=== PATIENT | female | born 1980 | race Caucasian/White ===

== ENCOUNTER 2022-08-19 16:46 | Emergency (ER) | payer OTHER, SELFPAY ==
[2022-08-19 16:56] VITALS: BP 149/96; PULSE 76; RESP 16; TEMP 36.3; O2SAT 100
== END 2022-08-19 22:54 | disposition left against medical advice (07) ==
PROVIDERS: PCP Internal Medicine
DX: R20.2 Paresthesia of skin (principal)
CPT/HCPCS: 99199

== ENCOUNTER 2024-08-06 00:18 | Emergency (ER) | payer OTHER, SELFPAY ==
--- NOTE | ~2024-08-06 | CT_ITS ---
CT scan of the Neck Technique: 2.5 mm axial scans were obtained through the neck after intravenous administration of 75 c c Omnipaque 350. Coronal and sagittal reconstructions of the neck were obtained. Dose reduction techn ique was used on this scan by utilizing automated exposure control and iterative reconstruction techn ique. The dose-length product (DLP) was 476.84 mGy-cm. Clinical History: Lymphadenopathy Findings: There is no evidence of any significant cervical lymphadenopathy. Several small, nonenlarged jugulo- digastric and posterior cervical lymph nodes are noted bilaterally. Parapharyngeal spaces appear norm al bilaterally. The parotid and submandibular glands appear normal. The pharyngeal mucosal spaces appear normal. No soft tissue masses are seen in the neck. The thyroid gland appears normal. Images of the lung apices reveal no abnormalities. Impression: No significant abnormalities noted. Reviewed, dictated and finalized at [facility]. ATION AND DEVELOPMENT MANAGER Impression: No significant abnormalities noted.
[2024-08-06 00:31] VITALS: BP 147/93; PULSE 99; RESP 15; TEMP 36.4; O2SAT 100
[2024-08-06 04:26] LABS: Basophils Percent Auto 0.2 % (0.2-1.2); Eosinophils Absolute Auto 0.1 K/mm3 (0-0.3); Eosinophils Percent Auto 0.7 % (0-4.4); Hematocrit 44.1 % (37.0-47.0); Hemoglobin 15.5 g/dL (12.0-15.0); Immature Granulocyte Absolute 0.02 K/mm3 (0.00-0.031); Immature Granulocyte Percent A 0.2 % (0-0.5); Lymphocytes Absolute Auto 3.11 K/mm3 (0.9-3.2); Lymphocytes Percent Auto 32.4 % (18.3-44.2); Mean Corpuscular HGB Conc 35.1 g/dl (32-36); Mean Corpuscular Hemoglobin 31.4 pg (26-34); Mean Corpuscular Volume 89.5 fl (80-100); Mean Platelet Volume 9.7 fl (7.4-10.4); Monocytes Absolute Auto 0.5 K/mm3 (0.1-0.6); Monocytes Percent Auto 4.8 % (2.6-8.5); Neutrophils Absolute Auto 5.9 K/mm3 (1.3-6.7); Neutrophils Percent Auto 61.7 % (45.5-73.1); Platelet Count Result 262 k/mm3 (150-375); Red Blood Count 4.93 M/mm3 (4.2-5.4); White Blood Count 9.6 K/mm3 (4.5-10.0)
[2024-08-06 04:31] LABS: Strep Group A RT-PCR NOT DETECTED (Negative)
[2024-08-06 04:42] LABS: Influenza A QL RT-PCR Negative (Negative); Influenza B QL RT-PCR Negative (Negative); RSV RNA, RT-PCR Negative (Negative); SARS-CoV-2 RNA PCR Negative (Negative)
[2024-08-06 04:43] LABS: Alanine Aminotransferase 18 U/L (6-35); Albumin Level 5.6 g/dL (3.5-5.1); Alkaline Phosphatase 64 U/L (38-126); Anion Gap 12 mmol/L (4-12); Aspartate Amino Transferase 26 U/L (14-36); Bilirubin,Total 0.6 mg/dL (0.2-1.3); Blood Urea Nitrogen 30 mg/dL (7-17); Calcium 9.7 mg/dL (8.4-10.2); Carbon Dioxide 24 mmol/L (22-30); Chloride 104 mmol/L (98-107); Estimated CRCL calculation 60 ml/min; Estimated Glomerular Filt Rate > 60; Glucose 108 mg/dL (65-110); Lactic Acid Reflex 0.9 mmol/L (0.7-2.0); Potassium 3.7 mmol/L (3.4-5.0); Sodium 140 mmol/L (137-145)
--- NOTE | 2024-08-06 05:02 | ED.GENADULT ---
HPI - General Adult General Chief complaint: Skin/Abscess/Foreign Body Stated complaint: R lymph node swelling, pain in ear Time Seen by Provider: 08/06/24 03:55 History of Present Illness HPI narrative: Patient for 4-year-old female who presents emergency department with chief complaint of swelling in her right jaw all area patient reports that she has had lumps that have developed minor ear and in her neck and on her right side of her mandible or. The patient reports she has an ulceration on the right side of her tongue Related Data Allergies Allergy/AdvReac Type Severity Reaction Status Date / Time codeine AdvReac Mild NAUSEA/VOMI Unverified 12/04/13 15:56 TING Review of Systems Review of Systems: A 10 system review of systems was completed on the patient and is negative except for what is stated in the HPI. Nursing and ancillary documentation was reviewed. Exam Narrative: GENERAL: Well-appearing, well-nourished, and in no acute distress. HEAD: Normocephalic, atraumatic. EYES: PERRLA and EOMI. ENT: Nares clear, no rhinorrhea or epistaxis. Mucous membranes moist. there is an ulceration present the right side of the time NECK: Supple. lymphadenopathy present on the right side of the neck CHEST: Clear to auscultation. No respiratory distress. HEART: Regular rate and rhythm. No murmur heard. Normal peripheral pulses. ABDOMEN: Soft, nontender, nondistended, normal active bowel sounds. EXTREMITIES: Normal range of motion. No edema. SKIN: Warm, dry, no rash. NEURO: No focal deficits. Alert and oriented x3. PSYCH: Normal mood and affect. Course Vital Signs Vital signs: Vital Signs Temperature 36.4 C 08/06/24 00:31 Pulse Rate 99 08/06/24 00:31 Respiratory Rate 15 08/06/24 00:31 Blood Pressure 147/93 H 08/06/24 00:31 Pulse Oximetry 100 08/06/24 00:31 Oxygen Delivery Room Air 08/06/24 00:31 Temperature 36.4 C 08/06/24 00:31 Pulse Rate 99 08/06/24 00:31 Respiratory Rate 15 08/06/24 00:31 Blood Pressure 147/93 H 08/06/24 00:31 Pulse Oximetry 100 08/06/24 00:31 Oxygen Delivery Room Air 08/06/24 00:31 Medical Decision Making [facility] Narrative Medical decision making narrative: differential diagnosis includes abscess, lymphadenopathy laboratory studies were obtained showed normal CBC CMP was within normal limits mono COVID flu and RSV were negative strep was negative. CT scan of the soft tissue neck showed There is no evidence of any significant cervical lymphadenopathy. Several small, nonenlarged jugulo- digastric and posterior cervical lymph nodes are noted bilaterally. Parapharyngeal spaces appear normal bilaterally. The parotid and submandibular glands appear normal. The pharyngeal mucosal spaces appear normal. No soft tissue masses are seen in the neck. The thyroid gland appears normal. Images of the lung apices reveal no abnormalities. Impression: No significant abnormalities noted patient was started on oral antibiotics will be discharged home to follow-up with primary care Vital Signs Vital Signs: Vital Signs Temperature 36.4 C 08/06/24 00:31 Pulse Rate 99 08/06/24 00:31 Respiratory Rate 15 08/06/24 00:31 Blood Pressure 147/93 H 08/06/24 00:31 Pulse Oximetry 100 08/06/24 00:31 Oxygen Delivery Room Air 08/06/24 00:31 Temperature 36.4 C 08/06/24 00:31 Pulse Rate 99 08/06/24 00:31 Respiratory Rate 15 08/06/24 00:31 Blood Pressure 147/93 H 08/06/24 00:31 Pulse Oximetry 100 08/06/24 00:31 Oxygen Delivery Room Air 08/06/24 00:31 Lab Data 08/06/24 04:17 08/06/24 04:17 Labs: Lab Results 08/06/24 08/06/24 Range/Units 03:37 04:17 WBC 9.6 (4.5-10.0) K/mm3 RBC 4.93 (4.2-5.4) M/mm3 Hgb 15.5 H (12.0-15.0) g/dL Hct 44.1 (37.0-47.0) % MCV 89.5 (80-100) fl MCH 31.4 (26-34) pg MCHC 35.1 (32-36) g/dl RDW 13.0 (11.5-14.5) % Plt Count 262 (150-375) k/mm3 MPV 9.7 (7.4-10.4) fl Immature Gran % (Auto) 0.2 (0-0.5) % Neut % (Auto) 61.7 (45.5-73.1) % Lymph % (Auto) 32.4 (18.3-44.2) % Bullitt % (Auto) 4.8 (2.6-8.5) % Eos % (Auto) 0.7 (0-4.4) % Baso % (Auto) 0.2 (0.2-1.2) % Lymph # (Auto) 3.11 (0.9-3.2) K/mm3 Bullitt # (Auto) 0.5 (0.1-0.6) K/mm3 Eos # (Auto) 0.1 (0-0.3) K/mm3 Baso # (Auto) 0.0 (0.0-0.1) K/mm3 Abs Immat Gran (auto) 0.02 (0.00-0.031) K/mm3 Absolute Neuts (auto) 5.9 (1.3-6.7) K/mm3 Absolute Nucleated RBC 0.000 (0.0-0.012) K/mm3 Nucleated RBC % 0.0 (0.0-0.2) % Sodium 140 (137-145) mmol/L Potassium 3.7 (3.4-5.0) mmol/L Chloride 104 (98-107) mmol/L Carbon Dioxide 24 (22-30) mmol/L Anion Gap 12 (4-12) mmol/L BUN 30 H (7-17) mg/dL Creatinine 1.00 (0.7-1.0) mg/dL Estim Creat Clear Calc 60 ml/min Estimated GFR > 60 (59 - ) Glucose 108 (65-110) mg/dL Lactic Acid 0.9 (0.7-2.0) mmol/L Calcium 9.7 (8.4-10.2) mg/dL Total Bilirubin 0.6 (0.2-1.3) mg/dL AST 26 (14-36) U/L ALT 18 (6-35) U/L Alkaline Phosphatase 64 (38-126) U/L Total Protein 9.0 H (6.3-8.2) g/dL Albumin 5.6 H (3.5-5.1) g/dL Monoscreen Negative (Negative) Influenza A (RT-PCR) Negative (Negative) Influenza B (RT-PCR) Negative (Negative) RSV (RT-PCR) Negative (Negative) SARS-CoV-2 RNA (RT-PCR) Negative (Negative) Group A Strep (PCR) Not detected (Negative) Discharge Plan Discharge Clinical Impression: Adenopathy, cervical Patient Disposition: Home, Self-Care Condition: Stable Instructions: Antibiotic Form, Lymphadenopathy (ED) Prescriptions: New amoxicillin-pot clavulanate 875-125 mg tablet 1 tablet PO Q12H 10 Days Qty: 20 0RF Follow-up/Referrals: Oni,Iraida Larose MD [Primary Care Provider] - Time of Disposition: 06:25
[2024-08-06 05:05] LABS: Monoscreen Negative (Negative); Negative Monotest Control Negative (Negative); Positive Monotest Control Positive (Positive)
[2024-08-06] MEDS: KETOROLAC 15 MG/ML VIAL (*BKC) IV PUSH (05:06)
[2024-08-06 06:33] VITALS: BP 138/72; PULSE 79; RESP 15; O2SAT 100
== END 2024-08-06 06:33 | disposition home or self-care (01) ==
PROVIDERS: Emergency Provider Emergency Medicine; PCP Internal Medicine
DX: R59.0 Localized enlarged lymph nodes (principal); Z20.822 Contact with and (suspected) exposure to COVID-19
CPT/HCPCS: 36415; 70491; 80053; 83605; 85025; 86308; 87637; 87651; 96374; 99284; J1885; Q9967

== ENCOUNTER 2025-01-10 21:19 | Emergency (ER) | payer OTHER, SELFPAY ==
--- NOTE | ~2025-01-10 | CT_ITS ---
CT brain wo con Ordering provider: Timothy Monsivais MD History: 44 years Female with . headache, neck pain, rule out meningitis . Comparison: None. Technique: CT of the head without contrast. Radiation reduction technique utilized.The dose-length pr oduct was 605.33 mGy-cm. FINDINGS: BRAIN PARENCHYMA AND CSF SPACES: No midline shift, mass effect or hemorrhage. The brain parenchyma a nd CSF spaces are otherwise normal. VISUALIZED PARANASAL SINUSES: Well aerated. MASTOIDS: Well aerated. BONES: The bones appear intact. SOFT TISSUES: Visualized nasopharynx is normal. Superficial soft tissues are normal. IMPRESSION: No acute intracranial findings. Reviewed, dictated and finalized at location A.
--- NOTE | ~2025-01-10 | CT_ITS ---
CT soft tissue neck wo con Ordering provider: Timothy Monsivais MD History: 44 years Female with . headache, neck pain, R/O meningitis. RIGHT SIDE JAW SWELLING . Comparison: None. Technique: CT soft tissues neck was performed without contrast. . Automated exposure control and ite rative reconstruction technique were employed. The dose-length product was 446.05 mGy-cm. Findings: LOWER HEAD: The visualized brain parenchyma, optic globes/orbits and mastoids are normal. The visua lized paranasal sinuses are well aerated. SALIVARY GLANDS: Normal. THYROID: Normal. There are seen in both lobes of the thyroid. Ultrasound evaluation advised. SUPRAHYOID DEEP SPACES: Lymph nodes seen in the posterior triangles with the largest in the left side measures 8 mm and on the right apex 0.1 mm. CAROTID ARTERIES: Normal. JUGULAR VEINS: Normal. TONSILS: Normal. ORAL CAVITY: normal as visualized. PHARYNX, LARYNX AND TRACHEA: Patent and normal. No prevertebral soft tissue swelling. Artifacts seen in the area of the larynx and hyoid bone. Soft tissue density is seen in the area of the false cord. Further evaluation advised. SUPERFICIAL SOFT TISSUES: Normal. No lymphadenopathy or neck mass. THORACIC INLET/VISUALIZED UPPER CHEST: Normal. SKELETAL: Ascending aorta measures 3.5 cm. IMPRESSION: 1. Possible soft tissue density in the area of the false cord. Further evaluation advised. 2. Multiple nodules in the thyroid. Ultrasound evaluation advised. Reviewed, dictated and finalized at location A. IMPRESSION: 1. Possible soft tissue density in the area of the false cord. Further evaluat ion advised. 2. Multiple nodules in the thyroid. Ultrasound evaluation advised.
--- NOTE | 2025-01-10 21:20 | ED_ITS ---
HPI - Headache General Chief Complaint: Headache Stated Complaint: headache/ neck pain Time Seen by Provider: 01/10/25 21:20 Source: patient and family Mode of arrival: ambulatory Limitations: no limitations History of Present Illness HPI Narrative: patient is a 44-year-old female with neck pain, headache, right cheek pain and concerns of a thyroid nodule. All of these complaints are over a month old and none of them are new. She has had most of them since August. She just found out about the thyroid nodule and has a plan with ENT to do a procedure with ultrasound this upcoming week. Further, the right cheek was evaluated by ENT already and they were going to send her to a specialist and she is waiting for a phone call. She was concerned about all of these things and wanted some advice. Specifically, the patient and her partner present were asking for pain medicine on multiple occasions. They asked if I can give her pain medicine to hold her until the ultrasound this week. They asked for pain medicines even before I was present to see the patient. They said their primary doctor gives him pain medicine all the time. They recently have been to other emergency rooms per history. as an aside, the partner was getting angry and aggressive that pain medicine has not been given to the patient at this point. MD elicited complaint: headache ( With associated neck pain) Pertinent past history: other ( None) Onset (ago): month(s) ( right cheek has been present since August, neck and headache are present over a month and the thyroid nodule was just found on a CT scan and has no pain) Onset description: gradually Location: frontal, facial ( right) and neck Severity: moderate Pain scale (0-10): 6 Quality & Timing: sharp Exacerbating factors: none Relieving factors: nothing Context: other ( patient has been having most of her symptoms for many months and is here for pain control per the patient and her present partner) Associated symptoms: none Treatments prior to arrival: prescription analgesic ( patient has on the chart from 01/09/2025 hydrocodone 10 mg tablets from [facility] which is only 1 day ago) Related Data Home Medications ?Medication ?Instructions ?Recorded ?Confirmed ?Last Taken ?Type hydrocodone 10 mg-acetaminophen tablet PO 01/09/25 01/09/25 Unknown History 325 mg tablet oxcarbazepine 300 mg tablet mg PO 01/09/25 01/09/25 Unknown History Allergies Allergy/AdvReac Type Severity Reaction Status Date / Time codeine AdvReac Mild NAUSEA/VOMI Verified 01/10/25 21:40 TING Review of Systems Review of Systems: All systems reviewed & are unremarkable except as noted in HPI and below Constitutional: Constitutional: Reports no additional constitutional complaints Eyes: Eyes: Reports no additional eye complaints ENT: Reports system reviewed and no additional complaints, except as documented Cardiovascular: Cardiovascular: Reports no additional cardiovascular compl aints Respiratory: Respiratory: Reports no additional respiratory complaints Gastrointestinal: Gastrointestinal: Reports no additional gastrointestinal complaints Genitourinary: Genitourinary: Reports no additional female genitourinary co mplaints Musculoskeletal: Musculoskeletal: Reports no additional musculoskeletal complaints Integumentary/Breasts: Skin/Breast: Reports system reviewed and no additional complaints, except as docu Neurologic: Reports system reviewed and no additional complaints, except as documented Psychiatric: Psychiatric: Reports no additional psychiatric complaints Endocrine: Endocrine: Reports no additional endocrine complaints Hematologic/Lymphatic: Hematologic/Lymphatic: Reports no additional hematologic/lymphatic complaints Allergic/Immunologic: Allergic/Immunologic: Reports no additional allergic/immunologic complaints [facility] Social History Social History Smoking status: Never smoker Exam Const: General: healthy appearing Nutritional Appearance: well nourished Orientation/consciousness: patient oriented x3 HENMT: Head: normal to inspection Ears: external ears normal Face/Nose/Sinus: Normal external nose present Other: patient and family declined to allow me to feel in her mouth with a gloved finger the opening to the parotid gland to feel for stone; on examination the parotid gland was not enlarged or swollen per her history and complaint Eyes: Conjunctivae: conjunctivae normal Pupils: Equal, round and reactive pupils present EOM: EOMs intact bilaterally Neck: Neck: normal visual inspection Chest: Chest palpation & inspection: normal inspection of the chest Resp: Effort & Inspection: normal respiratory effort and not labored Auscultation: clear to auscultation bilaterally and no crackles Cardio: Rate: regular rate Rhythm: regular rhythm Heart sounds: no murmurs GI: Inspection: non-distended GI Palp: Yes Soft to palpation and No Tenderness to palpation present (GI) Auscultation: normal bowel sounds : General: Yes bladder normal to palpation Back/Spine/Pelvis: Back: no CVA tenderness Skin: General skin exam: normal color Rashes: no rashes Wounds: no wounds Neuro: General: patient oriented x3 Cranial nerves: Yes Nystagmus not present Speech: normal speech Gait exam (Neuro): Normal gait present Extrem: General: normal to inspection Psych: Mental Status: mental status grossly normal Affect: normal affect Attitude: cooperative MDM - Headache MDM Narrative Medical decision making narrative: patient is a 44-year-old female with multiple complaints to include her head and neck and right face and thyroid. Patient did not appear to be in significant pain on examination or to palpation of her head and neck or the parotid gland from the outside of her face or the thyroid. Nothing on examination appeared to be overly enlarged. I was asked on multiple occasions by both patient and significant partner present for pain medication. On the chart she was at [facility] as of 01/09/2025 and got [place] 10 mg tablets. There was drug-seeking behaviors on multiple occasions during this encounter by the patient and the significant partner. But I explained that I will not give pain medication until I see about the case and exam and they were very upset and proceeded to leave AMA because pain medication was not given. They would not sign the AMA form. The patient was awake alert oriented x4 and she had the capacity making ability to decide that she did not want medical care at this time. Results of the scans and labs were reviewed and she understands the risks and benefits of leaving AMA. Lab Data Attestation: I reviewed the patient's lab results. Imaging Data Attestation: I personally reviewed and interpreted this imaging study as follows: My impression: patient has a plan to follow up with the [facility] who was following the right cheek and thyroid at this time. Radiologist's impression: CT scan of the head was negative for acute process CT scan of the neck soft tissue shows IMPRESSION: 1. Possible soft tissue density in the area of the false cord. Further evaluat ion advised. 2. Multiple nodules in the thyroid. Ultrasound evaluation advised. Discharge Plan Discharge Clinical Impression: Thyroid nodule, Swelling of right parotid gland, Neck pain, Drug-seeking behavior, Vocal cord anomaly Headache Qualifiers: Headache type: unspecified Headache chronicity pattern: unspecified pattern Intractability: not intractable Qualified Code(s): R51.9 - Headache, unspecified Patient Disposition: Left Against Medical Advice Condition: Stable Patient Language: Ukrainian Prescriptions: No Action hydrocodone-acetaminophen 10-325 mg tablet PO oxcarbazepine 300 mg tablet PO Follow-up/Referrals: UNKNOWN,DOCTOR [Non-Staff] - Time of Disposition: 23:35
--- OUTSIDE RECORDS SUMMARY | 2025-01-10 21:21 | XMS_ITS | Clinical Summary ---
Author Organization [facility] Address [address] [place] [address] Care Team Providers Care Tennis Director Name Role Phone Micah Cao MD Primary Care Provider [phone] Source Comments [facility],non-owned Affiliates and Associated Physician Practices is amultiple site organization consisting of ambulatory clinics and hospital sitesin [place], [place], [place] and [place]. This disclosure is being madepursuant to the Care Everywhere program and may not contain all information available regarding this patient. Last updated 18.[facility] Allergies Active Allergy Reactions Criticality Noted Date Comments Codeine Diarrhea,Nausea and/or Vomiting,GI Discomfort Low 01/28/2015 Takes norco without difficulty Ketorolac Tromethamine Swelling Low 02/16/2015 Swelling of the upper lip Levetiracetam GI Discomfort 03/18/2019 Medications * This document contains information received from the source organization and may not represent a complete record from that organization. * Be aware that medications may not be up to date on this document. Alwaysverify current medications with the patient. omeprazole (PRILOSEC) 20 MG capsule Take 20 mg by mouth 02/08/2016 Active ibuprofen (MOTRIN) 600 MG tablet Take 1 Tab by mouth every 6 hours as needed for Pain 90 Tab 1 02/27/2016 Active ondansetron, disintegrating, (ZOFRAN ODT) 4 MG tabletIndication s:Tension-type headache, not intractable, unspecified chronicity pattern Take 1 (one) tablet by mouth every 8 hours as needed for Nausea/Vomit ing 60 tablet 03/31/2022 Active OXcarbazepine (Trileptal) 300 MG tablet Take 2 (two) tablets by mouth 2 times daily 360 tablet 1 06/18/2024 Active Active Problems Problem Noted Date Diagnosed Date Seizures 08/17/2020 Generalized anxiety disorder 03/21/2019 Migraine with aura and witho ut status migrainosus, not intractable 03/21/2019 Lumbosacral radiculopathy 03/21/2019 Chronic interstitial cystitis 03/15/2016 Chronic pelvic pain in female 02/11/2016 Dyspareunia, female 02/11/2016 Symptomatic states associated with artificial me nopause 02/11/2016 Peritoneal cyst 02/11/2016 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 Pelvic mass 02/03/2015 Resolved Problems Problem Noted Date Diagnosed Date Resolved Date Partial symptomatic epilepsy with complex partial seizures, not intractable, without status epilepticus 03/21/2019 03/17/2022 Encounters Date Type Department Care Team Description 01/03/2025 Travel 12/10/2024 Refill [facility] - Neurology [facility] [place] [address] Nicole Rebolledo APRN-TECHNOLOGY OFFICER Refill Request from Last 3 Months Family History Medical History Relation Name Comments Breast Cancer after age 50 or unknown Maternal Grandmo ther Cancer - Ovarian Maternal Grandmother Endometriosis Mother Cancer - Ovarian Other aunt Diabetes Other aunt Colon Cancer after age 50 or unknown Paternal Grandfat her Endometriosis Sister Relation Name Status Comments Maternal Grandmother Mother Other aunt Paternal Grandfather Sister Social History Tobacco Use Types Packs/Day Years Used Date Smoking Tobacco: Never Smokeless Tobacco: Never Alcohol Use Standard Drinks/Week Comments No 0 (1 standard drink = 0.6 oz pur e alcohol) PHQ-2 Answer Date Recorded PHQ2 TOTAL SCORE 1 04/07/2022 Comments No Sex and Gender Information Value Date Recorded Sex Assigned at Not on file Legal Sex Female 5:39 AM MANAGER PRODUCT DESIGN Gender Identity Not on file Sexual Orientation Not on file Last Filed Vital Signs Vital Sign Reading Time Taken Comments Blood Pressure 127/78 04/07/2022 1:23 PM CDT Pulse 86 04/07/2022 1:23 PM CDT Temperature 36.4 C (97.6 F) 04/07/2022 1:23 PM CDT Respiratory Rate 20 04/07/2022 1:23 PM CDT Oxygen Saturation 100% 04/07/2022 1:23 PM CDT Inhaled Oxygen Concentration 100% 03/21/2017 1 :08 PM CDT Weight 66.3 kg (146 lb 3.2 oz) 04/07/2022 1:23 P M CDT Height 157.5 cm (5' 2 ) 04/07/2022 1:23 PM CDT Body Mass Index 26.74 04/07/2022 1:23 PM CDT Plan of Treatment Upcoming Encounters Date Type Department Care Team (Late st Contact Info) Description 04/08/2025 3:00 PM CDT Office Visit [facility] - Neurology [address] [facility] [place] [id number] Nicole Rebolledo, TAHIRA-TECHNOLOGY OFFICER [address] [place] [address] Health Maintenance Due Date Last Done Comments LIPID TESTING 1982 MAMMOGRAM 1982 PAP SMEAR 1982 HIV SCREENING 1997 HEPATITIS C SCREENING 06/26/2000 DTAP/TDAP/TD VACCINES (1 - Tdap) 2001 HEPATITIS B VACCINE (1 of 3 - 19+ 3-dose series) 2001 SCREENING FOR DIABETES 07/13/2022 9, 05/08/2019, 03/21/2017, Additional history exists COVID-19 VACCINE ( season) 2024 DEPRESSION SCREENING 09/04/2024 04/07/2022 INFLUENZA VACCINE (Season Ended) 2025 ZOSTER VACCINE (1 of 2) 2032 HIB VACCINE Aged Out No longer eligi ble based on patient's age to complete this topic HPV VACCINE Aged Out No longer eligi ble based on patient's age to complete this topic MENINGOCOCCAL (Group B) VACCINE SHARED DECISION-MAKING Aged Out No longer eligible based on patient's age to complete this topic MENINGOCOCCAL GROUPS A/C/Y/W VACCINE Aged Out No longer eligible based on patient's age to complete this topic PNEUMOCOCCAL VACCINE Aged Out No long er eligible based on patient's age to complete this topic Medical Devices Implanted Type Area Quality Assurance Intern Device Identifier Shelf Expiration Date Model / Serial / Lot Floseal Hemostatic Matrix Implanted:Qty: 1 on 02/03/2015 by Ishan Laboy MD at [facility] [place] [facility] [place] [facility] 05/04/2016 [id number] / [id number] / [id number] Explanted Type Area Quality Assurance Intern Device Identifier Shelf Expiration Date Model / Serial / Lot Infravision [place] Ureteral Kit Implanted:Qty: 1 Explanted:Qty: 1 on 02/25/2016 by Ishan Laboy MD at [facility] [place] [facility] [place] Bilateral: Ureter 04/03/2017 [id number] / / [id number] Description:lighted ureteral stents Procedures Procedure Name Priority Date/Time Associated Diagnosis Comments COMPREHENSIVE METABOLIC PANEL STAT 05/08/2019 5:23 PM CDT from Last 3 Months or Most Recently Relevant to Health Maintenance Results * COMPREHENSIVE METABOLIC PANEL (05/08/2019 5:23 PM CDT) BUN 15 7 - 26 mg/dL 05/08/2019 5:42 PM [facility] Creatinine 0.9 0.6 - 1.2 mg/dL 05/08/2019 5:42 PM [facility] Sodium 142 136 - 145 mmol/L 05/08/2019 5:42 PM [facility] Potassium 3.6 3.5 - 4.5 mmol/L 05/08/2019 5:42 PM [facility] Chloride 105 98 - 107 mmol/L 05/08/2019 5:42 PM [facility] CO2 24 22 - 29 mmol/L 05/08/2019 5:42 PM [facility] Glucose 99 70 - 115 mg/dL 05/08/2019 5:42 PM [facility] Calcium 9.9 8.4 - 10.2 mg/dL 05/08/2019 5:42 PM [facility] Protein Total 7.8 6.0 - 8.3 g/dL 05/08/2019 5:42 PM [facility] Albumin 4.7 3.4 - 5.0 g/dL 05/08/2019 5:42 PM [facility] Bilirubin Total 0.4 0.2 - 1.2 mg/dL 05/08/2019 5:42 PM [facility] Alkaline Phosphatase 47 40 - 150 Units/L 05/08/2019 5:42 PM [facility] ALT 9 0 - 55 Units/L 05/08/2019 5:42 PM [facility] AST 19 5 - 34 Units/L 05/08/2019 5:42 PM [facility] Anion Gap 17 8 - 18 05/08/2019 5:42 PM [facility] BUN/Creatinine Ratio 17 7 - 23 05/08/2019 5:42 PM [facility] Osmolality Calculated 295 270 - 300 mOsm/kg 05/08/2019 5:42 PM [facility] Albumin/Globulin Ratio 1.5 1.1 - 2.3 05/08/2019 5:42 PM [facility] eGFR >60 >60 mL/min/1.7 3 m2 05/08/2019 5:42 PM [facility] Blood BLOOD SPECIMEN / Unknown Venipuncture / Unknown 05/08/2019 5:23 PM CDT 05/08/2019 5:23 PM T Eb Zuñiga MD LAB - CHEMISTRY ORDERABLES nal Result [facility] [address] [place] [address] from Last 3 Months or Most Recently Relevant to Health Maintenance Insurance [facility] Advance Directives * Full Code (Latest Code Status on File) Date Activated Date Inactivated Comments 02/25/2016 1:00 PM 02/27/2016 7:26 PM * Full Code Date Activated Date Inactivated Comments 02/03/2015 1:07 PM 02/05/2015 7:49 PM Care Teams Tennis Director Relationship Specialty Start Date End Date Micah Cao MD [address] [place] [phone] PCP - General Family Medicine 01/03/25
--- OUTSIDE RECORDS SUMMARY | 2025-01-10 21:21 | XMS_ITS | Encounter Summary ---
Author Organization [facility] Healthcare Address [address] [place] [address] Care Team Providers Care Jewel Waxer Name Role Phone Micah Cao MD Primary Care Provider [phone] Micah Cao MD Unavailable [phone] Encounter Details Date Type Department Care Team (Late st Contact Info) Description 12/13/2024 Results Follow-Up [facility] Medical Group Convenient Care at [address] [address] Dhruv Elizabeth NP [address] [place] [address] [address] [place] [address] Social History Tobacco Use Types Packs/Day Years Used Date Smoking Tobacco: Never AUDIT-C Answer Date Recorded Q1: How often do you have a drink containing alcohol? Never 08/15/2024 Q2: How many drinks containi ng alcohol do you have on a typical day when you are drinking? Patient does not drink Q3: How often do you have si x or more drinks on one occasion? Never 08/15/2024 PHQ-2 Answer Date Recorded PHQ-2 Total Score (If total score is 3 or more points, staff should administer the PHQ-9) 2 04/05/2024 Comments No Sex and Gender Information Value Date Recorded Sex Assigned at Not on file Legal Sex Female 9:55 PM DIRECTOR NURSES' REGISTRY Gender Identity Female 08/25/2022 9:37 AM DIRECTOR NURSES' REGISTRY Sexual Orientation Choose not to disclose 2021 9:37 AM DIRECTOR NURSES' REGISTRY documented as of this encounter Plan of Treatment Not on file documented as of this encounter Visit Diagnoses Not on filedocumented in this encounter Care Teams Jewel Waxer Relationship Specialty Start Date End Date Micah Cao MD PCP - General Family Medicine 05/16/22 Micah Cao MD Family Medicine 05/13/22 documented as of this encounter
--- OUTSIDE RECORDS SUMMARY | 2025-01-10 21:21 | XMS_ITS | Encounter Summary ---
Author Organization [facility] Address [address] [facility] [place] [address] Care Team Providers Care Technical Stenographer Name Role Phone Micah Cao MD Primary Care Provider [phone] Encounter Details Date Type Department Care Team (Late st Contact Info) Description 06/18/2024 Telephone [facility] - Neurology [address] [place] [phone] Nicole Rebolledo, TAHIRA-HOSPITALITY HOUSE SUPERVISOR [address] [place] [phone] Social History Tobacco Use Types Packs/Day Years Used Date Smoking Tobacco: Never Smokeless Tobacco: Never Alcohol Use Standard Drinks/Week Comments No 0 (1 standard drink = 0.6 oz pur e alcohol) PHQ-2 Answer Date Recorded PHQ2 TOTAL SCORE 1 04/07/2022 Comments No Sex and Gender Information Value Date Recorded Sex Assigned at Not on file Legal Sex Female 5:39 AM BANK MESSENGER Gender Identity Not on file Sexual Orientation Not on file documented as of this encounter Functional Status * Is person deaf or have serious hearing difficulty? Answer Date of Assessment Author No 02/25/2016 1:45 PM MEGANT Daniella Shaver RN * Is person blind or have serious difficulty seeing? Answer Date of Assessment Author No 02/25/2016 1:45 PM MEGANT Daniella Shaver RN * Does person have serious difficulty walking/climbing stairs? Answer Date of Assessment Author No 02/25/2016 1:45 PM CDT Daniella Shaver RN * Does person have difficulty dressing/bathing? Answer Date of Assessment Author No 02/25/2016 1:45 PM CDT Daniella Shaver RN * Does person have difficulty doing errands alone? Answer Date of Assessment Author No 02/25/2016 1:45 PM CDT Daniella Shaver RN documented as of this encounter Mental Status * Does person have difficulty concentrating/remembering/making decisions? Answer Entry Date Author No 02/25/2016 1:45 PM CDT Daniella Shaver RN documented in this encounter Miscellaneous Notes * Telephone Encounter - Yaneli Franco - 06/18/2024 8:09 AM CDT Patient called in requesting a Med refill. Drug type:Trileptal 300 mg and clozapam 0.5 mg twice a day (scared she is going to start having more seizures if she doesn't get this medication) Pharmacy:[facility] in [place] Patient call back number: [phone] . Upcoming appointment scheduled for : 04/02/25 documented in this encounter Plan of Treatment Upcoming Encounters Date Type Department Care Team (Late st Contact Info) Description 04/08/2025 3:00 PM CDT Office Visit [facility] - Neurology [facility] [place] [address] Nicole Rebolledo APRN-HOSPITALITY HOUSE SUPERVISOR [address] [place] [address] documented as of this encounter Visit Diagnoses Not on filedocumented in this encounter Care Teams Technical Stenographer Relationship Specialty Start Date End Date Micah Cao MD [address] [place] [address] [address] [place] [address] PCP - General Family Medicine 01/03/25 documented as of this encounter
--- OUTSIDE RECORDS SUMMARY | 2025-01-10 21:21 | XMS_ITS | Encounter Summary ---
Author Organization [facility] Healthcare Address [address] [place] [address] Care Team Providers Care Burning Machine Operator Name Role Phone Micah Cao MD Primary Care Provider [phone] Micah Cao MD Unavailable [phone] Encounter Details Date Type Department Care Team (Late st Contact Info) Description 04/15/[address] [facility] Medical Group Family Medicine at [address] [address] Micah Cao MD [address] [place] [address] Social History Tobacco Use Types Packs/Day Years Used Date Smoking Tobacco: Never AUDIT-C Answer Date Recorded Q1: How often do you have a drink containing alc ohol? Monthly or less 09/26/2023 Q2: How many drinks containi ng alcohol do you have on a typical day when you are drinking? 1 or 2 09/26/2023 Q3: How often do you have si x or more drinks on one occasion? Never 09/26/2023 PHQ-2 Answer Date Recorded PHQ-2 Total Score (If total score is 3 or more points, staff should administer the PHQ-9) 2 04/05/2024 Comments No Sex and Gender Information Value Date Recorded Sex Assigned at Not on file Legal Sex Female 9:55 PM IMPROVEMENT ENGINEER Gender Identity Female 08/25/2022 9:37 AM IMPROVEMENT ENGINEER Sexual Orientation Choose not to disclose 2021 9:37 AM IMPROVEMENT ENGINEER documented as of this encounter Plan of Treatment Not on file documented as of this encounter Visit Diagnoses Not on filedocumented in this encounter Care Teams Burning Machine Operator Relationship Specialty Start Date End Date Micah Cao MD PCP - General Family Medicine 05/16/22 Micah Cao MD Family Medicine 05/13/22 documented as of this encounter
--- OUTSIDE RECORDS SUMMARY | 2025-01-10 21:21 | XMS_ITS ---
Author Organization [facility] Address [address] [place] [address] Care Team Providers Care Lead Nurse Name Role Phone Angelika Casiano Primary Care Provider Kamaljit Zimmerman [phone] REASON FOR VISIT doc hydrocodone last use 07/10/24 interested in suboxone Encounters Encounter Location Date Provider Diagnosis [facility] [place] [address] 07/12/2024 Kamaljit Zimmerman Plan Of Treatment No Information Progress Notes * Azam LOWEineDOB: [birth year] (44 yo F)Acc No.[id number]:07/12/2024 UNLOCKED PROGRESS NOTE Patient: Mckenna PRECIADO Provider: DOREEN Brower, ACCOUNTING ASSISTANT, DISTILLER-C :1980 A ge:44 Y S ex:Female Date:07/12/2024 Address:[address] [place], [place] [phone] Pcp:Angelika Casiano Subjective: * Chief Complaints: * 1 . Doc hydrocodone last use 07/10/24 interested in suboxone. * Medical History: Objective: * Vitals: Assessment: Plan: * Treatment: * * Electronic signature of Nara Zimmerman APRN, [id number] on 01/10/2025 at 09:21 PM CDT Sign off status: Pending * Provider: Daniella Zimmerman, MSN, ACCOUNTING ASSISTANT, DISTILLER-C Date: 09/11/2023 Generated for Justina beck/Wil/Roosevelt on: 0 01/10/2025 09:21 PM CDT
--- OUTSIDE RECORDS SUMMARY | 2025-01-10 21:21 | XMS_ITS | Clinical Summary ---
Author Organization [facility] Virtual Care Address [address] [place] [address] Phone Care Team Providers Care Specifications Writer Name Role Phone Micah Cao MD Primary Care Provider [phone] Micah Cao MD Unavailable [phone] Allergies Active Allergy Reactions Criticality Noted Date Comments Codeine Diarrhea,Stomach upset,Nausea And Vomiting Low 01/28/2015 Stomach/GI Upset Takes norco without difficulty Ketorolac Tromethamine Swelling Medium 02/16/2015 Swelling of the upper lip Levetiracetam Stomach upset Low 03/18/2019 Morphine Rash Medium 11/11/2018 Rash Medications OXcarbazepine (TRILEPTAL) 150 mg tabletIndicatio ns:Seizure disorder (HCC) Take one tablet po bid for one week, then 2 tablets po bid 120 tablet 3 4 Active HYDROcodone-saida taminophen (NORCO) 10-325 mg per tabletIndicatio ns:Pain Take 1 tablet by mouth every 12 (twelve) hours as needed for pain 60 tablet 5 Active HYDROcodone-saida taminophen (NORCO) 10-325 mg per tabletIndicatio ns:Pain Take 1 tablet by mouth every 12 (twelve) hours as needed for pain 60 tablet 5 01/01/20 25 Discontinu ed(Reorder ) Active Problems Problem Noted Date Diagnosed Date Left hip pain 09/26/2023 Assessment & Plan (09/26/2023 9:30 AM DOCUMENTATION DESIGNER): RICE, Xray, Referral pain?? Chronic left-sided low back pain with left-sided sciatica 06/13/2022 Assessment & Plan (09/26/2023 9:27 AM DOCUMENTATION DESIGNER): Chronic pain. X-ray lumbar spine. With left hip. Has seen pain management in the past. Has done physical therapy. BMI 29. Chronic hydrocodone use. Reviewed okay. BETO (generalized anxiety disorder) 06/13/2022 Assessment & Plan (09/26/2023 9:28 AM DOCUMENTATION DESIGNER): Counseling recommended. Currently off Celexa. Seizure disorder 11/12/2021 Assessment & Plan (09/26/2023 9:32 AM DOCUMENTATION DESIGNER): Referral to neurology. On Benzo. 2019. For seizures. If miss dose has a seizure. Resolved Problems Problem Noted Date Diagnosed Date Resolved Date Generalized epilepsy 06/13/2022 024 Assessment & Plan (09/26/2023 9:27 AM DOCUMENTATION DESIGNER): Currently stable. Referral to Neurology. Discussed clonazepam and hydrocodone interaction. Encounters Date Type Department Care Team Description 12/13/2024 Results Follow-Up [facility] Medical Group Convenient Care at [address] [address] Dhruv Elizabeth NP 12/11/2024 7:41 PM CDT - 12/11/2024 11:59 PM CDT Hospital Encounter [address] [address] Nasopharyngitis; Parotid gland enlargement Discharge Disposition: Discharge to home or self care 12/11/2024 4:45 PM CDT Office Visit [facility] Medical Group Convenient Care at [address] [address] Charley Snyder PA Nasopharyngitis (Primary Dx); Parotid gland enlargement 12/04/2024 Telephone [facility] at [address] [place] [address] Micah Cao MD Medication Request 10/15/2024 Telephone [facility] at [address] [place] [address] Micah Cao MD Additional Services Or Orders from Last 3 Months Immunizations Immunization Administration Dates Next Due Influenza, Trivalent, Preser vative Free, Intramuscular 06/22/2016 Influenza, Unspecified 09/26/2023(Deferr ed: Patient Refused),07/03/2022(Deferred: Patient Refused),06/13/2022(Deferred: Patient Refused),06/04/2021(Deferred: Patient Refused) Surgical History Surgery Date Site/Laterality Comments HYSTERECTOMY SECTION LUNG SURGERY Right Medical History Medical History Date Comments Seizures (HCC) Epilepsy (HCC) Family History Medical History Relation Name Comments Colon cancer Maternal Grandfather Lung cancer Maternal Grandmother Hypertension Mother Relation Name Status Comments Father Alive Maternal Grandfather Maternal Grandmother Mother Alive Social History Tobacco Use Types Packs/Day Years Used Date Smoking Tobacco: Never Tobacco Cessation:Counseling Given: Not Answered AUDIT-C Answer Date Recorded Q1: How often [...] on file Legal Sex Female 9:55 PM DOCUMENTATION DESIGNER Gender Identity Female 08/25/2022 9:37 AM DOCUMENTATION DESIGNER Sexual Orientation Choose not to disclose 2021 9:37 AM DOCUMENTATION DESIGNER Obstetrics History Last Filed Vital Signs Vital Sign Reading Time Taken Comments Blood Pressure 136/93 12/11/2024 4:31 PM CDT Pulse 80 12/11/2024 4:31 PM CDT Temperature 36.8 C (98.3 F) 12/11/2024 4:31 PM CDT Respiratory Rate 20 12/11/2024 4:31 PM CDT Oxygen Saturation 99% 12/11/2024 4:31 PM CDT Inhaled Oxygen Concentration - - Weight 71.3 kg (157 lb 1.6 oz) 12/11/2024 4:31 P M CDT Height 157.5 cm (5' 2 ) 12/11/2024 4:31 PM CDT Body Mass Index 28.73 12/11/2024 4:31 PM CDT Plan of Treatment Health Maintenance Due Date Last Done Comments Breast Cancer Screening-Mammogram 1982 Hepatitis C Screening 1982 DTaP/Tdap/Td Vaccine (1 - Tdap) 1993 Varicella Vaccines (1 of 2 - 13+ 2-dose series) 1995 Hepatitis B Screening 2000 Regular Well Visit/Exam 18-64 2000 Depression Screening 04/05/2025 04/05/2024, 04/07/2023, 05/16/2022 Influenza Vaccine (Season Ended) 2025 06/22/2016 HPV Vaccines Aged Out No longer eligi ble based on patient's age to complete this topic Pneumococcal vaccine <65 Aged Out No longer eligible based on patient's age to complete this topic Procedures Procedure Name Priority Date/Time Associated Diagnosis Comments POCT RAPID STREP Routine 12/11/2024 4:55 PM CDT Nasopharyngitis KENDRA (YEAST) CULTURE Routine 12/11/2024 12:00 PM CDT THROAT CULTURE Routine 12/11/2024 12:00 PM CDT Nasopharyngitis Parotid gland enlargement from Last 3 Months Results * POCT rapid strep A (12/11/2024 4:55 PM CDT) Rapid Strep A, POC Negative Negative Swab 12/11/2024 4:55 PM CDT Charley BROWN POINT OF CARE TEST ORDER ABRIL Final Result * Kendra (yeast) culture Scraping Mouth (12/11/2024 12:00 PM CDT) Report Final Report: No growth of Kendra Comment:Testing performed by : [facility], [address] [place]., [address] Scraping (Mouth) 12/11/2024 12:00 PM CDT 12/12/2024 2:20 AM CDT Narrative [facility] - 12/17/2024 8:58 AM CDT Interpretation data: This culture is NOT intended for the detection of filamentous fungi, endemic mycosis, or Cryptococcus. If detected, yeast will be reported and identified. Routine susceptibility is not performed, but if required, please contact the Microbiology Laboratory at . [facility]OWN LAB MICROBIOLOGY - GENER AL ORDERABLES Final Result Performing Organization Address City/[facility]/ZIP Co de Phone Number [place] [address] Nick Department [place] [address] * Throat culture Throat (12/11/2024 12:00 PM CDT) Report Final Report: Negative Comment:Testing performed by : [facility], [address] [place]., [address] Throat 12/11/2024 12:0 0 PM CDT 12/12/2024 2:19 AM CDT Narrative [facility] - 12/13/2024 2:51 PM CDT Testing performed by [facility] Microbiology Laboratory ([phone]). [facility] LAB MICROBIOLOGY - GENER AL ORDERABLES Final Result Performing Organization Address City/[facility]/ZIP Co de Phone [place] [address] Nick [place] [address] from Last 3 Months Insurance Advance Directives For more information, please contact: [phone] Documents on File Type Date Recorded Patient Development Intern Expl anation ADVANCE DIRECTIVE 12/23/2013 12:00 AM LILIBETH Daniel OF MGMT CONSULTANT FINANCIAL/MEDICAL Care Teams Specifications Writer Relationship Specialty Start Date End Date Micah Cao MD PCP - General Family Medicine 05/16/22 Micah Cao MD Family Medicine 05/13/22
--- OUTSIDE RECORDS SUMMARY | 2025-01-10 21:21 | XMS_ITS | Referral Summary ---
Author Organization [facility] Virtual Care Address [facility] [place] [address] Phone Care Team Providers Care Internet Site Designer Name Role Phone Micah Cao MD Primary Care Provider [phone] Micah Cao MD Unavailable [phone] Encounters Date Type Department Care Team Description 12/13/2024 Results Follow-Up [facility] Care at [address] [address] Dhruv Elizabeth NP 12/11/2024 7:41 PM CDT - 12/11/2024 11:59 PM CDT Hospital Encounter [facility] [address] [place] [address] Nasopharyngitis; Parotid gland enlargement Discharge Disposition: Discharge to home or self care 12/11/2024 4:45 PM CDT Office Visit [facility] Care at [address] [address] Charley Snyder PA Nasopharyngitis (Primary Dx); Parotid gland enlargement 12/04/2024 Telephone [facility] Family Medicine at [address] [place] [address] Micah Cao MD Medication Request 10/15/2024 Telephone [facility] Medical Group Family Medicine at [address] [place] [address] Micah Cao MD Additional Services Or Orders from Last 3 Months Allergies Active Allergy Reactions Criticality Noted Date [...] 09/26/2023 Assessment & Plan (09/26/2023 9:30 AM NETBACKUP ADMINISTRATOR): Jose Armando CLINE, Referral pain?? Chronic left-sided low back pain with left-sided sciatica 06/13/2022 Assessment & Plan (09/26/2023 9:27 AM NETBACKUP ADMINISTRATOR): Chronic pain. X-ray lumbar spine. With left hip. Has seen pain management in the past. Has done physical therapy. BMI 29. Chronic hydrocodone use. Reviewed okay. BETO (generalized anxiety disorder) 06/13/2022 Assessment & Plan (09/26/2023 9:28 AM NETBACKUP ADMINISTRATOR): Counseling recommended. Currently off Celexa. Seizure disorder 11/12/2021 Assessment & Plan (09/26/2023 9:32 AM NETBACKUP ADMINISTRATOR): Referral to neurology. On 2018. For seizures. If miss dose has a seizure. Resolved Problems Problem Noted Date Diagnosed Date Resolved Date Generalized epilepsy 06/13/2022 024 Assessment & Plan (09/26/2023 9:27 AM NETBACKUP ADMINISTRATOR): Currently stable. Referral to Neurology. Discussed clonazepam and hydrocodone interaction. Immunizations Immunization Administration Dates Next Due Influenza, Trivalent, Preser vative Free, Intramuscular 06/22/2016 Influenza, Unspecified 09/26/2023(Deferr ed: Patient Refused),07/03/2022(Deferred: Patient Refused),06/13/2022(Deferred: Patient Refused),06/04/2021(Deferred: Patient Refused) Social History Tobacco Use Types Packs/Day Years [...] on file Legal Sex Female 9:55 PM NETBACKUP ADMINISTRATOR Gender Identity Female 08/25/2022 9:37 AM NETBACKUP ADMINISTRATOR Sexual Orientation Choose not to disclose 2021 9:37 AM NETBACKUP ADMINISTRATOR Last Filed Vital Signs Vital Sign Reading [...] 12/11/2024 4:31 PM CDT Plan of Treatment Not on file Procedures Procedure Name Priority Date/Time Associated Diagnosis Comments POCT RAPID STREP Routine 12/11/2024 4:5 5 PM CDT Nasopharyngitis KENRDA (YEAST) CULTURE Routine 12/11/2024 12:00 PM CDT THROAT CULTURE Routine 12/11/2024 12:00 PM CDT Nasopharyngitis Parotid gland enlargement from Last 3 Months Results * POCT rapid strep A (12/11/2024 4:55 PM CDT) Pathologist [facility] Rapid Strep A, POC Negative Negative Swab 12/11/2024 4:55 PM CDT us Charley BROWN POINT OF CARE TEST ORDER ABRIL Final Result * Kendra (yeast) culture Scraping Mouth (12/11/2024 12:00 PM CDT) Pathologist [facility] Report Final Report: No growth of Kendra Comment:Testing performed by : [facility], [address] [facility]., [address] Scraping (Mouth) 12/11/2024 12:00 PM CDT 12/12/2024 2:20 AM CDT Narrative [facility] - 12/17/2024 8:58 AM CDT Interpretation data: This culture is NOT intended for the detection of filamentous fungi, endemic mycosis, or Cryptococcus. If detected, yeast will be reported and identified. Routine susceptibility is not performed, but if required, please contact the Microbiology Laboratory at . us Charley [facility]OWN LAB MICROBIOLOGY - GENER AL ORDERABLES Final Result [facility]IER [id number] [address] Department [place] [address] * Throat culture Throat (12/11/2024 12:00 PM CDT) Report Final Report: Negative Comment:Testing performed by : [facility], [address] [place]., [address] Throat 12/11/2024 12:0 0 PM CDT 12/12/2024 2:19 AM CDT Narrative [facility] - 12/13/2024 2:51 PM CDT Testing performed by [facility] Microbiology Laboratory ([phone]). Charley BROWN LAB MICROBIOLOGY - GENER AL ORDERABLES Final Result Performing Organization Address City/[facility]/ZIP Co de Phone Number [facility]IER [id number] [address] Department [place] [address] from Last 3 Months Insurance Advance Directives For more information, please contact: [phone] Documents on File Type Date Recorded Patient Fisher Weir Expl anation ADVANCE DIRECTIVE 12/23/2013 12:00 AM LILIBETH R OF YOKE SETTER FINANCIAL/MEDICAL Care Teams Internet Site Designer Relationship Specialty Start Date End Date Micah Cao MD PCP - General Family Medicine 05/16/22 Micah Cao MD Family Medicine 05/13/22
--- OUTSIDE RECORDS SUMMARY | 2025-01-10 21:21 | XMS_ITS | Encounter Summary ---
Author Organization [facility] Facility Care Team Providers Care Brand Activation Manager Name Role Phone Unknown, Notinfile Primary Care Provider Unavail able Micah Cao MD Primary Care Provider [phone] Anais Walker Primary Care Provider + Micah Cao MD Primary Care Provider Micah Cao MD Unavailable [phone] Encounter Details Date Type Department Care Team (Latest Contact Info) Description 02/06/2018 Orders Only [facility] ProviderDhaval MD [address] [place] [address] Social History Tobacco Use Types Packs/Day Years Used Date Smoking Tobacco: Never Assessed Comments Unknown Sex and Gender Information Value Date Recorded Sex Assigned at Not on file Legal Sex Female 9:55 PM POSTULANT Gender Identity Female 08/25/2022 9:37 AM POSTULANT Sexual Orientation Choose not to disclose 2021 9:37 AM POSTULANT documented as of this encounter Plan of Treatment Not on file documented as of this encounter Procedures Procedure Name Priority Date/Time Associated Diagnosis Comments PROCEDURE - RESULT 02/06/2018 12 :00 AM CDT PROCEDURE - RESULT 02/06/2018 12 :00 AM CDT PROCEDURE - RESULT 02/06/2018 12 :00 AM CDT documented in this encounter Results * PROCEDURE - RESULT (02/06/2018 12:00 AM CDT) Narrative 02/06/2018 12:00 AM CDT Ordered by an unspecified provider. Historical Provider Final Res ult * PROCEDURE - RESULT (02/06/2018 12:00 AM CDT) Narrative 02/06/2018 12:00 AM CDT Ordered by an unspecified provider. Historical Provider Final Res ult * PROCEDURE - RESULT (02/06/2018 12:00 AM CDT) Narrative 02/06/2018 12:00 AM CDT Ordered by an unspecified provider. 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
--- OUTSIDE RECORDS SUMMARY | 2025-01-10 21:21 | XMS_ITS | Patient Health Record ---
Author Organization [facility] Address [address] [place] [address] Care Team Providers Care Slate Roofer Name Role Phone OhAngelika Primary Care Provider Kamaljit Zimmerman Unavailable [phone] Allergies No Known Allergies Reason For Referral No Information Medications Medication SIG (Take, Route, Frequency, Duration) Notes Start Date End Date Status hydrOXYzine HCl 25 MG 1 tablet Orally every 6 hrs as needed for 30 days As needed Active clonazePAM 0.5 MG 1 tablet three times daily as needed Orally three times daily prescribed by PCP Active CeleXA 20 MG 1.5 tablets Orally Once a day for 30 days Active HYDROcodone-Acetamino phen 10-325 MG 1 tablet as needed Orally every 6 hrs prescribed by PCP Active SEROquel 25 MG 0.5 tablet Orally two times daily as needed for 30 days As needed 09/20/2023 Active Social History Tobacco Use: Social History Observation Description Date Details (start date - stop date) Never Smoker NA - NA Dont use, Tobacco Use/Smoking Question Answer Notes Are you a nonsmoker Problems Problem Type SNOMED Code ICD Code Onset Dates Problem Status W/U Status Risk Notes Problem Insomnia (201779401) Insomnia (G47.00) Active confirmed Problem Attention deficit hyperactivity disorder, 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), inattentive type (F90.0) Active confirmed Problem Moderate recurrent major depression (89269346) MDD (major depressive disorder), recurrent episode, moderate (F33.1) Active confirmed Problem Generalized anxiety disorder (51150809) Anxiety, generalized (F41.1) Active confirmed Problem Obesity (481690225) Obesity, unspecified classification, unspecified obesity type, unspecified whether serious comorbidity present (E66.9) Active confirmed Encounters Encounter Location Date Provider Diagnosis [address] [place] [address] 03/25/2024 Angelika Casiano [facility] [address] [place] [address] 07/11/2024 Kamaljit Zimmerman Plan Of Treatment No Information Insurance Providers Payer Name Payer Address Payer Phone Subscriber Number Group Number Insured Name Patient Relationship to Insured Coverage Start Date Coverage End Date [employer] Attn Claims Department [address] [place] [address] [phone] [id number] Mckenna Newman Self - patient is the insured [facility] Claims Department [address] [place] [address] [id number] Mckenna Newman Self - patient is the insured 3 Medical (General) History Medical History History ICD Code back pain Surgical History Surgery Date(Month/Year) HYSTERECTOMY 2007 section 2001, 2002, 2005
[2025-01-10 21:22] VITALS: BP 177/119; PULSE 86; RESP 18; TEMP 36.2; O2SAT 100
--- OUTSIDE RECORDS SUMMARY | 2025-01-10 22:02 | XMS_ITS | Encounter Summary ---
Author Organization [facility] Care Team Providers Care Medical Consultant Name Role Phone Unknown, Notinfile Primary Care Provider Unavail able Micah Cao MD Primary Care Provider [phone] Anais Walker Primary Care Provider + Micah Cao MD Primary Care Provider [phone] Micah Cao MD Unavailable [phone] Encounter Details Date Type Department Care Team (Latest Contact Info) Description 02/06/2018 Orders Only [facility] ProviderDhaval MD [address] [place] [address] Social History Tobacco Use Types Packs/Day Years Used Date Smoking Tobacco: Never Assessed Comments Unknown Sex and Gender Information Value Date Recorded Sex Assigned at Not on file Legal Sex Female 9:55 PM WINDOWS SYSTEMS ENGINEER Gender Identity Female 08/25/2022 9:37 AM WINDOWS SYSTEMS ENGINEER Sexual Orientation Choose not to disclose 2021 9:37 AM WINDOWS SYSTEMS ENGINEER documented as of this encounter Plan [...] documented as of this encounter Care Teams Medical Consultant Relationship Specialty Start Date End Date Unknown, Notinfile PCP - General 08/15/18 10/05/20 Micah Cao MD PCP - General Family Medicine 03/18/22 05/12/22 Anais Walker PA PCP - General Family Medicine 05/13/22 05/15/22 Micah Cao MD PCP - General Family Medicine 05/16/22 Micah Cao MD Family Medicine 05/13/22 documented as of this encounter
--- OUTSIDE RECORDS SUMMARY | 2025-01-10 22:02 | XMS_ITS | Clinical Summary ---
Author Organization [facility] Virtual Care Address [address] [place] [address] Phone Care Team Providers Care Radial Drill Press Operator For Plastic Name Role Phone Micah Cao MD Primary Care Provider [phone] Micah Cao MD Unavailable [phone] Allergies Active Allergy Reactions Criticality Noted Date [...] 09/26/2023 Assessment & Plan (09/26/2023 9:30 AM SLOT MACHINE DEPARTMENT FLOORPERSON): RICE, Xray, Referral pain?? Chronic left-sided low back pain with left-sided sciatica 06/13/2022 Assessment & Plan (09/26/2023 9:27 AM SLOT MACHINE DEPARTMENT FLOORPERSON): Chronic pain. X-ray lumbar spine. With left hip. Has seen pain management in the past. Has done physical therapy. BMI 29. Chronic hydrocodone use. Reviewed okay. BETO (generalized anxiety disorder) 06/13/2022 Assessment & Plan (09/26/2023 9:28 AM SLOT MACHINE DEPARTMENT FLOORPERSON): Counseling recommended. Currently off Celexa. Seizure disorder 11/12/2021 Assessment & Plan (09/26/2023 9:32 AM SLOT MACHINE DEPARTMENT FLOORPERSON): Referral to neurology. On Benzo. 2019. For seizures. If miss dose has a seizure. Resolved Problems Problem Noted Date Diagnosed Date Resolved Date Generalized epilepsy 06/13/2022 024 Assessment & Plan (09/26/2023 9:27 AM SLOT MACHINE DEPARTMENT FLOORPERSON): Currently stable. Referral to Neurology. Discussed clonazepam and hydrocodone interaction. Encounters Date Type Department Care Team Description 12/13/2024 Results Follow-Up [facility] at [address] [address] Dhruv Elizabeth NP 12/11/2024 7:41 PM CDT - 12/11/2024 11:59 PM CDT Hospital Encounter [address] [address] Nasopharyngitis; Parotid gland enlargement Discharge Disposition: Discharge to home or self care 12/11/2024 4:45 PM CDT Office Visit [facility] at [address] [address] Charley Snyder PA Nasopharyngitis (Primary Dx); Parotid gland enlargement 12/04/2024 Telephone [facility] at [address] [place] [address] Micah Cao MD Medication Request 10/15/2024 Telephone [facility] at [address] [place] [address] Micah Cao MD Additional Services [...] on file Legal Sex Female 9:55 PM SLOT MACHINE DEPARTMENT FLOORPERSON Gender Identity Female 08/25/2022 9:37 AM SLOT MACHINE DEPARTMENT FLOORPERSON Sexual Orientation Choose not to disclose 2021 9:37 AM SLOT MACHINE DEPARTMENT FLOORPERSON Obstetrics History Last Filed Vital Signs Vital [...] growth of Kendra Comment:Testing performed by : [facility], [address] [place]., [address] Scraping (Mouth) 12/11/2024 12:00 PM CDT 12/12/2024 2:20 AM CDT Narrative [facility] - 12/17/2024 8:58 AM CDT Interpretation data: This culture is NOT intended for the detection of filamentous fungi, endemic mycosis, or Cryptococcus. If detected, yeast will be reported and identified. Routine susceptibility is not performed, but if required, please contact the Microbiology Laboratory at . [facility] MICROBIOLOGY - GENER AL ORDERABLES Final Result Performing Organization Address City/[facility]/ZIP Co de Phone [place] [address] [address] [place] [address] * Throat culture Throat (12/11/2024 12:00 PM CDT) Report Final Report: Negative Comment:Testing performed by : [facility], [address] [place]., [address] Throat 12/11/2024 12:0 0 PM CDT 12/12/2024 2:19 AM CDT Narrative [facility] - 12/13/2024 2:51 PM CDT Testing performed by [facility] Microbiology Laboratory ([phone]). [facility] MICROBIOLOGY - GENER AL ORDERABLES Final Result Performing Organization Address City/[facility]/ZIP Co de Phone Number [place] [address] Nick Department [address] [place] [address] from Last 3 Months Insurance Advance Directives For more information, please contact: [phone] Documents on File Type Date Recorded Patient Back Shoe Cutter Expl anation ADVANCE DIRECTIVE 12/23/2013 12:00 AM LILIBETH Daniel OF [employer]SE [employer]/MEDICAL Care Teams Radial Drill Press Operator For Plastic Relationship Specialty Start Date End Date Miach Cao MD PCP - General Family Medicine 05/16/22 Micah Cao MD Family Medicine 05/13/22
--- OUTSIDE RECORDS SUMMARY | 2025-01-10 22:02 | XMS_ITS | Clinical Summary ---
Author Organization [facility] Address [address] [facility] [place] [address] Care Team Providers Care Power Transformer Repair Supervisor Name Role Phone Micah Cao MD Primary Care Provider [phone] Source Comments [facility],non-owned Affiliates and Associated Physician Practices is amultiple site organization consisting of ambulatory clinics and hospital sitesin [place], [place], [place] and [place]. This disclosure is being madepursuant to the Care Everywhere program and may not contain all information available regarding this patient. Last updated 18.[facility] Allergies Active Allergy Reactions Criticality Noted Date [...] 12/10/2024 Refill [facility] [place] [address] Nicole Rebolledo APRN-BOOK COVERER Refill Request from Last 3 Months Family [...] on file Legal Sex Female 5:39 AM INVENTORY CONTROL PLANNER Gender Identity Not on file Sexual Orientation [...] [facility] [address] [facility], [place] [id number] Nicole Rebolledo, TAHIRA-BOOK COVERER [address] [place] [address] Health Maintenance Due Date Last Done Comments [...] this topic Medical Devices Implanted Type Area Jira Administrator Device Identifier Shelf Expiration Date Model / Serial / Lot Floseal Hemostatic Matrix Implanted:Qty: 1 on 02/03/2015 by Ishan Laboy MD at [facility] 05/04/2016 [id number] / [id number] / [id number] Explanted Type Area Jira Administrator Device Identifier Shelf Expiration Date Model / Serial / Lot Inf[employer]ision Cuttyhunk Ureteral Kit Implanted:Qty: 1 Explanted:Qty: 1 on 02/25/2016 by Ishan Laboy MD at [facility] Bilateral: Ureter 04/03/2017 [id number] / / [id number] Description:lighted ureteral stents Procedures Procedure Name Priority Date/Time Associated Diagnosis Comments COMPREHENSIVE METABOLIC PANEL STAT 05/08/2019 5:23 PM CDT from Last 3 Months or Most Recently Relevant to Health Maintenance Results * COMPREHENSIVE METABOLIC PANEL (05/08/2019 5:23 PM CDT) BUN 15 7 - 26 mg/dL 05/08/2019 5:42 PM [facility] Creatinine 0.9 0.6 - 1.2 mg/dL 05/08/2019 5:42 PM [facility] Sodium 142 136 - 145 mmol/L 05/08/2019 5:42 PM [facility] Potassium 3.6 3.5 - 4.5 mmol/L 05/08/2019 5:42 PM [facility] Chloride 105 98 - 107 mmol/L 05/08/2019 5:42 PM [facility] CO2 24 22 - 29 mmol/L 05/08/2019 5:42 PM [facility] Glucose 99 70 - 115 mg/dL 05/08/2019 5:42 PM [facility] Calcium 9.9 8.4 - 10.2 mg/dL 05/08/2019 5:42 PM [facility] Protein Total 7.8 6.0 - 8.3 g/dL 05/08/2019 5:42 PM [facility] Albumin 4.7 3.4 - 5.0 [...] MD LAB - CHEMISTRY ORDERABLES nal Result [facility] [address] [place] [address] from Last 3 Months or Most Recently Relevant to Health Maintenance Insurance [facility] Advance Directives * Full Code (Latest Code Status on File) Date Activated Date Inactivated Comments 02/25/2016 1:00 PM 02/27/2016 7:26 PM * Full Code Date Activated Date Inactivated Comments 02/03/2015 1:07 PM 02/05/2015 7:49 PM Care Teams Power Transformer Repair Supervisor Relationship Specialty Start Date End Date Micah Cao MD [address] [place] [phone] PCP - General Family Medicine 01/03/25
--- OUTSIDE RECORDS SUMMARY | 2025-01-10 22:02 | XMS_ITS | Encounter Summary ---
Author Organization [facility] Address [address] [facility] [place] [address] Care Team Providers Care Senior Electronics Technician Name Role Phone Micah Cao MD Primary Care Provider [phone] Encounter Details Date Type Department Care Team (Late st Contact Info) Description 06/18/2024 Telephone [facility] [address] [place] [address] Nicole Rebolledo, TAHIRA-DRYWALL HANGER FRAMER [address] [place] [phone] Social History Tobacco Use Types Packs/Day Years Used Date Smoking Tobacco: Never Smokeless Tobacco: Never Alcohol Use Standard Drinks/Week Comments No 0 (1 standard drink = 0.6 oz pur e alcohol) PHQ-2 Answer Date Recorded PHQ2 TOTAL SCORE 1 04/07/2022 Comments No Sex and Gender Information Value Date Recorded Sex Assigned at Not on file Legal Sex Female 5:39 AM SUPERINTENDENT BUILDING Gender Identity Not on file Sexual Orientation [...] seizures if she doesn't get this medication) Pharmacy:[facility] [place] Patient call back number: [phone] . Upcoming appointment scheduled for : 04/02/25 documented in this encounter Plan of Treatment Upcoming Encounters Date Type Department Care Team (Late st Contact Info) Description 04/08/2025 3:00 PM CDT Office Visit [facility] [place] [address] Nicole Rebolledo APRN-DRYWALL HANGER FRAMER [address] [place] [address] documented as of this encounter Visit Diagnoses Not on filedocumented in this encounter Care Teams Senior Electronics Technician Relationship Specialty Start Date End Date Micah Cao MD [address] [place] [address] [address] [place] [address] PCP - General Family Medicine 01/03/25 documented as of this encounter
--- OUTSIDE RECORDS SUMMARY | 2025-01-10 22:02 | XMS_ITS | Encounter Summary ---
Author Organization [facility] Healthcare Address [address] [place] [address] Care Team Providers Care Decorating Equipment Setter Name Role Phone Micah Cao MD Primary Care Provider [phone] Micah Cao MD Unavailable [phone] Encounter Details Date Type Department Care Team (Late st Contact Info) Description 12/13/2024 Results Follow-Up [facility] at [address] [address] Dhruv Elizabeth NP [address] [place] [address] [address] [place] [address] Social History Tobacco Use Types [...] on file Legal Sex Female 9:55 PM FOREIGN CLERK Gender Identity Female 08/25/2022 9:37 AM FOREIGN CLERK Sexual Orientation Choose not to disclose 2021 9:37 AM FOREIGN CLERK documented as of this encounter Plan of Treatment Not on file documented as of this encounter Visit Diagnoses Not on filedocumented in this encounter Care Teams Decorating Equipment Setter Relationship Specialty Start Date End Date Micah Cao MD PCP - General Family Medicine 05/16/22 Micah Cao MD Family Medicine 05/13/22 documented as of this encounter
--- OUTSIDE RECORDS SUMMARY | 2025-01-10 22:02 | XMS_ITS | Referral Summary ---
Author Organization [facility] Virtual Care Address [facility] [place] [address] Phone Care Team Providers Care Front Man Name Role Phone Micah Cao MD Primary Care Provider [phone] Micah Cao MD Unavailable Encounters Date Type Department Care Team Description 12/13/2024 Results Follow-Up [facility] Care at [address] [address] Dhruv Elizabeth NP 12/11/2024 7:41 PM CDT - 12/11/2024 11:59 PM CDT Hospital Encounter [facility] [address] [place] [address] Nasopharyngitis; Parotid gland enlargement Discharge Disposition: Discharge to home or self care 12/11/2024 4:45 PM CDT Office Visit [facility] Care at [address] [address] Charley Snyder PA Nasopharyngitis (Primary Dx); Parotid gland enlargement 12/04/2024 Telephone [facility] Family Medicine at [address] [place] [address] Micah Cao MD Medication Request 10/15/2024 Telephone [facility] Family Medicine at [address] [place] [address] Micah Cao MD Additional Services [...] 09/26/2023 Assessment & Plan (09/26/2023 9:30 AM TRAVEL TRAILER COMPONENTS ASSEMBLER): Jose Armando CLINE, Referral pain?? Chronic left-sided low back pain with left-sided sciatica 06/13/2022 Assessment & Plan (09/26/2023 9:27 AM TRAVEL TRAILER COMPONENTS ASSEMBLER): Chronic pain. X-ray lumbar spine. With left hip. Has seen pain management in the past. Has done physical therapy. BMI 29. Chronic hydrocodone use. Reviewed okay. BETO (generalized anxiety disorder) 06/13/2022 Assessment & Plan (09/26/2023 9:28 AM TRAVEL TRAILER COMPONENTS ASSEMBLER): Counseling recommended. Currently off Celexa. Seizure disorder 11/12/2021 Assessment & Plan (09/26/2023 9:32 AM TRAVEL TRAILER COMPONENTS ASSEMBLER): Referral to neurology. On 2018. For seizures. If miss dose has a seizure. Resolved Problems Problem Noted Date Diagnosed Date Resolved Date Generalized epilepsy 06/13/2022 024 Assessment & Plan (09/26/2023 9:27 AM TRAVEL TRAILER COMPONENTS ASSEMBLER): Currently stable. Referral to Neurology. Discussed clonazepam [...] on file Legal Sex Female 9:55 PM TRAVEL TRAILER COMPONENTS ASSEMBLER Gender Identity Female 08/25/2022 9:37 AM TRAVEL TRAILER COMPONENTS ASSEMBLER Sexual Orientation Choose not to disclose 2021 9:37 AM TRAVEL TRAILER COMPONENTS ASSEMBLER Last Filed Vital Signs Vital Sign Reading [...] strep A (12/11/2024 4:55 PM CDT) Pathologist [facility] Rapid Strep A, POC Negative Negative Swab 12/11/2024 4:55 PM CDT us [facility] POINT OF CARE TEST ORDER ABRIL Final Result * Kendra (yeast) culture Scraping Mouth (12/11/2024 12:00 PM CDT) Pathologist [facility] Report Final Report: No growth of Kendra Comment:Testing performed by : [facility], [address] [place]., [address] Scraping (Mouth) 12/11/2024 12:00 PM CDT 12/12/2024 [...] GENER AL ORDERABLES Final Result [facility] [id number] [place] [address] * Throat culture Throat (12/11/2024 12:00 PM CDT) Report Final Report: Negative Comment:Testing performed by : [facility], [address] [place]., [address] Throat 12/11/2024 12:0 0 PM CDT 12/12/2024 2:19 AM CDT Narrative [facility] - 12/13/2024 2:51 PM CDT Testing performed by [facility] Microbiology Laboratory ([phone]). [facility] MICROBIOLOGY - GENER AL ORDERABLES Final Result [facility] [id number] [place] [address] from Last 3 Months Insurance Advance Directives For more information, please contact: [phone] Documents on File Type Date Recorded Patient Gambling Broker Expl anation ADVANCE DIRECTIVE 12/23/2013 12:00 AM LILIBETH R OF SOFT SUGAR CUTTER FINANCIAL/MEDICAL Care Teams Front Man Relationship Specialty Start Date End Date Micah Cao MD PCP - General Family Medicine 05/16/22 Micah Cao MD Family Medicine 05/13/22
--- OUTSIDE RECORDS SUMMARY | 2025-01-10 22:02 | XMS_ITS | Encounter Summary ---
Author Organization [facility] Healthcare Address [address] [place] [address] Care Team Providers Care Head Bucker Name Role Phone Micah Cao MD Primary Care Provider [phone] Micah Cao MD Unavailable Encounter Details Date Type Department Care Team (Late st Contact Info) Description 04/15/[address] [facility] Family Medicine at [address] [address] Micah Cao MD [address] [place] [address] Social History Tobacco Use Types Packs/Day [...] on file Legal Sex Female 9:55 PM LINTER OPERATOR Gender Identity Female 08/25/2022 9:37 AM LINTER OPERATOR Sexual Orientation Choose not to disclose 2021 9:37 AM LINTER OPERATOR documented as of this encounter Plan of Treatment Not on file documented as of this encounter Visit Diagnoses Not on filedocumented in this encounter Care Teams Head Bucker Relationship Specialty Start Date End Date Micah Cao MD PCP - General Family Medicine 05/16/22 Micah Cao MD Family Medicine 05/13/22 documented as of this encounter
[2025-01-10 23:03] LABS: Basophils Absolute Auto 0.02 K/mm3 (0.00-0.10); Basophils Percent Auto 0.3 % (0.0-1.0); Eosinophils Absolute Auto 0.21 K/mm3 (0.02-0.50); Eosinophils Percent Auto 2.7 % (1.0-6.0); Hematocrit 42.4 % (35.0-49.0); Hemoglobin 14.5 g/dL (12.0-15.0); Immature Granulocyte Absolute 0.01 K/mm3 (0.00-0.00); Immature Granulocyte Percent A 0.1 % (0.0-0.0); Lymphocytes Absolute Auto 2.23 K/mm3 (1.10-4.50); Mean Corpuscular HGB Conc 34.2 g/dL (32-36); Mean Corpuscular Hemoglobin 29.7 pg (27.0-31.0); Mean Corpuscular Volume 86.9 fL (78.0-102.0); Mean Platelet Volume 9.2 fl (9.2-11.8); Monocytes Absolute Auto 0.37 K/mm3 (0.10-0.90); Monocytes Percent Auto 4.8 % (2.0-11.0); Neutrophils Absolute Auto 4.85 K/mm3 (1.70-7.20); Neutrophils Percent Auto 63.1 % (50.0-70.0); Platelet Count Result 271 K/mm3 (150-420); Red Blood Count 4.88 M/mm3 (4.20-5.40); Red Cell Distribution Width 12.9 % (11.6-14.4); White Blood Count 7.7 K/mm3 (4.8-10.8)
[2025-01-10 23:15] LABS: INR 0.9; Prothrombin Time 10.3 Seconds (9.50-12.1)
[2025-01-10 23:17] LABS: Alanine Aminotransferase 15 U/L (6-35); Albumin Level 5.1 g/dL (3.5-5.1); Alkaline Phosphatase 61 U/L (38-126); Anion Gap 6 mmol/L (4-12); Aspartate Amino Transferase 27 U/L (14-36); Bilirubin,Total 0.5 mg/dL (0.2-1.3); Blood Urea Nitrogen 13 mg/dL (7-17); CRP < 0.5 mg/dL (<1.0); Calcium 9.2 mg/dL (8.4-10.2); Carbon Dioxide 30 mmol/L (22-30); Chloride 105 mmol/L (98-107); Estimated CRCL calculation 72 ml/min; Estimated Glomerular Filt Rate > 60; Glucose 102 mg/dL (65-110); Osmolality Calculated 292 mOsm/kg (285-295); Potassium 3.9 mmol/L (3.4-5.0); Sodium 141 mmol/L (137-145); Total Protein 8.1 g/dL (6.3-8.2)
[2025-01-10 23:19] LABS: Partial Thromboplastin Time 30.3 Sec (23.9-30.70)
--- NOTE | 2025-01-12 12:41 | PC.NURSE ---
PRELIMINARY BLOOD CULTURE REPORT; NO GROWTH TO DATE.
== END 2025-01-10 23:35 | disposition left against medical advice (07) ==
PROVIDERS: Emergency Provider Emergency Medicine; PCP Family Medicine
DX: E04.1 Nontoxic single thyroid nodule (principal); R59.0 Localized enlarged lymph nodes; M54.2 Cervicalgia; Z76.5 Malingerer [conscious simulation]; R51.9 Headache, unspecified; Q89.8 Other specified congenital malformations; Z79.891 Long term (current) use of opiate analgesic; Z79.899 Other long term (current) drug therapy
CPT/HCPCS: 36415; 70450; 70490; 80053; 85025; 85610; 85730; 86140; 87040; 99284

== ENCOUNTER 2025-01-13 15:05 | Outpatient (CLI) | payer OTHER, SELFPAY ==
--- NOTE | ~2025-01-13 | US_ITS ---
Thyroid ultrasound. Clinical History: Nontoxic nodule Findings: Real-time sonography of the thyroid gland was performed. The right lobe measures 4.1 x 1.2 x 1.4 cm. The left lobe measures 4.1 x 2.0 x 1.6 cm. The isthmus is 4 mm in AP diameter. There is a 2.4 x 1.9 1.6 cm hyperechoic solid nodule at the left lower thyroid pole. Impression: 2.4 cm TI-RADS 3 nodule at the left lower pole. Annual follow-up exam advised.. Reviewed, dictated and finalized at location . Impression: 2.4 cm TI-RADS 3 nodule at the left lower pole. Annual follow-up exam advised..
--- OUTSIDE RECORDS SUMMARY | 2025-01-13 15:10 | XMS_ITS | Clinical Summary ---
Author Organization [facility] [email or web address] Address [address] [place] [place] [address] Care Team Providers Care Black Leather Buffer Name Role Phone Micah Cao MD Primary Care Provider [phone] Source Comments [facility] [email or web address],non-owned Affiliates and Associated Physician Practices is amultiple site organization consisting of ambulatory clinics and hospital sitesin [place], [place], [place] and [place]. This disclosure is being madepursuant to the Care Everywhere program and may not contain all information available regarding this patient. Last updated 18.[facility] [email or web address] Allergies Active Allergy Reactions Criticality Noted Date [...] [facility] [place] [address] Nicole Rebolledo APRN-DIRECTOR CORPORATE Refill Request from Last 3 Months Family [...] on file Legal Sex Female 5:39 AM SHRUB PLANTER Gender Identity Not on file Sexual Orientation [...] [facility] [address] [facility] [place] [phone] Nicole Rebolledo, TAHIRA-DIRECTOR CORPORATE [address] [place] [address] Health Maintenance Due Date Last Done Comments [...] this topic Medical Devices Implanted Type Area Contact Center Director Device Identifier Shelf Expiration Date Model / Serial / Lot Floseal Hemostatic Matrix Implanted:Qty: 1 on 02/03/2015 by Ishan Laboy MD at [facility] 05/04/2016 [id number] / [id number] / [id number] Explanted Type Area Contact Center Director Device Identifier Shelf Expiration Date Model / Serial / Lot Infravision [place] Ureteral Kit Implanted:Qty: 1 Explanted:Qty: 1 on 02/25/2016 by Ishan Laboy MD at [facility] Bilateral: Ureter 04/03/2017 [id number] / / [id number] Description:lighted ureteral stents Procedures Procedure Name Priority Date/Time Associated Diagnosis Comments COMPREHENSIVE METABOLIC PANEL STAT 05/08/2019 5:23 PM CDT from Last 3 Months or Most Recently Relevant to Health Maintenance Results * COMPREHENSIVE METABOLIC PANEL (05/08/2019 5:23 PM CDT) BUN 15 7 - 26 mg/dL 05/08/2019 5:42 PM [facility] Creatinine 0.9 0.6 - 1.2 mg/dL 05/08/2019 5:42 PM [facility] Sodium 142 136 - 145 mmol/L 05/08/2019 5:42 PM [facility] Potassium 3.6 3.5 - 4.5 mmol/L 05/08/2019 5:42 PM [facility] Chloride 105 98 - 107 mmol/L 05/08/2019 5:42 PM [facility] CO2 24 22 - 29 mmol/L 05/08/2019 5:42 PM [facility] Glucose 99 70 - 115 mg/dL 05/08/2019 5:42 PM [facility] Calcium 9.9 8.4 - 10.2 mg/dL 05/08/2019 5:42 PM [facility] Protein Total 7.8 6.0 - 8.3 g/dL 05/08/2019 5:42 PM [facility] Albumin 4.7 3.4 - 5.0 g/dL 05/08/2019 5:42 PM [facility] Bilirubin Total 0.4 0.2 - 1.2 mg/dL 05/08/2019 5:42 PM [facility] Alkaline Phosphatase 47 40 - 150 Units/L 05/08/2019 5:42 PM [facility] ALT 9 0 - 55 Units/L 05/08/2019 5:42 PM [facility] AST 19 5 - 34 Units/L 05/08/2019 5:42 PM [facility] Anion Gap 17 8 - 18 05/08/2019 5:42 PM [facility] BUN/Creatinine Ratio 17 7 - 23 05/08/2019 5:42 PM [facility] Osmolality Calculated 295 270 - 300 mOsm/kg 05/08/2019 5:42 PM [facility] Albumin/Globulin Ratio 1.5 1.1 - 2.3 05/08/2019 5:42 PM [facility] eGFR >60 >60 mL/min/1.7 3 m2 05/08/2019 5:42 PM [facility] Blood BLOOD SPECIMEN / Unknown Venipuncture / Unknown 05/08/2019 5:23 PM CDT 05/08/2019 5:23 PM T Eb Zuñiga MD LAB - CHEMISTRY ORDERABLES nal Result [facility] [address] [place] [address] from Last 3 Months or Most Recently Relevant to Health Maintenance Insurance [facility] Advance Directives * Full Code (Latest Code Status on File) Date Activated Date Inactivated Comments 02/25/2016 1:00 PM 02/27/2016 7:26 PM * Full Code Date Activated Date Inactivated Comments 02/03/2015 1:07 PM 02/05/2015 7:49 PM Care Teams Black Leather Buffer Relationship Specialty Start Date End Date Micah Cao MD [address] [place] [phone] PCP - General Family Medicine 01/03/25
--- OUTSIDE RECORDS SUMMARY | 2025-01-13 15:10 | XMS_ITS ---
Author Organization [facility] Address [address] [place] [address] Care Team Providers Care Five Piece Expansion Maker Hand Name Role Phone Angelika Casiano Primary Care Provider Kamaljit Zimmerman [phone] REASON FOR VISIT doc hydrocodone last use 07/10/24 interested in suboxone Encounters Encounter Location Date Provider Diagnosis [facility] [place] [address] 07/12/2024 Kamaljit Zimmerman Plan Of Treatment No Information Progress Notes * Azam LOWEineDOB: [birth year] (44 yo F)Acc No.[id number]:07/12/2024 UNLOCKED PROGRESS NOTE Patient: Mckenna PRECIADO Provider: DOREEN Brower, RACETRACK STEWARD, LEAD GENERATOR-C :1980 A ge:44 Y S ex:Female Date:07/12/2024 Address:[address] [place], [place] [id number] Pcp:Angelika Casiano Subjective: * Chief Complaints: * 1 . Doc hydrocodone last use 07/10/24 interested in suboxone. * Medical History: Objective: * Vitals: Assessment: Plan: * Treatment: * * Electronic signature of Nara Zimmerman APRN, [id number] on 01/13/2025 at 03:10 PM CDT Sign off status: Pending * Provider: Daniella Zimmerman, MSN, RACETRACK STEWARD, LEAD GENERATOR-C Date: 09/11/2023 Generated for Justina beck/Wil/[place] on: 0 01/13/2025 03:10 PM CDT
--- OUTSIDE RECORDS SUMMARY | 2025-01-13 15:10 | XMS_ITS | Referral Summary ---
Author Organization [facility] Virtual Care Address [facility] [place] [address] Phone Care Team Providers Care Sharepoint Developer Name Role Phone Micah Cao MD Primary Care Provider [phone] Micah Cao MD Unavailable [phone] Encounters Date Type Department Care Team Description 12/13/2024 Results Follow-Up [facility] Care at [address] [address] Dhruv Elizabeth NP 12/11/2024 7:41 PM CDT - 12/11/2024 11:59 PM CDT Hospital Encounter [facility] [address] [place] [address] Nasopharyngitis; Parotid gland enlargement Discharge Disposition: Discharge to home or self care 12/11/2024 4:45 PM CDT Office Visit [facility] Care at [address] [address] Charley Snyder PA Nasopharyngitis (Primary Dx); Parotid gland enlargement 12/04/2024 Telephone [facility] Family Medicine at [address] [place] [address] Micah Cao MD Medication Request from Last 3 Months Allergies Active Allergy [...] 09/26/2023 Assessment & Plan (09/26/2023 9:30 AM CRIBBER): SON Xray, Referral pain?? Chronic left-sided low back pain with left-sided sciatica 06/13/2022 Assessment & Plan (09/26/2023 9:27 AM CRIBBER): Chronic pain. X-ray lumbar spine. With left hip. Has seen pain management in the past. Has done physical therapy. BMI 29. Chronic hydrocodone use. Reviewed okay. BETO (generalized anxiety disorder) 06/13/2022 Assessment & Plan (09/26/2023 9:28 AM CRIBBER): Counseling recommended. Currently off Celexa. Seizure disorder 11/12/2021 Assessment & Plan (09/26/2023 9:32 AM CRIBBER): Referral to neurology. On Benzo. 2019. For seizures. If miss dose has a seizure. Resolved Problems Problem Noted Date Diagnosed Date Resolved Date Generalized epilepsy 06/13/2022 024 Assessment & Plan (09/26/2023 9:27 AM CRIBBER): Currently stable. Referral to Neurology. Discussed clonazepam [...] on file Legal Sex Female 9:55 PM CRIBBER Gender Identity Female 08/25/2022 9:37 AM CRIBBER Sexual Orientation Choose not to disclose 2021 9:37 AM CRIBBER Last Filed Vital Signs Vital Sign Reading [...] growth of Kendra Comment:Testing performed by : [facility], [address] [facility] [place] [address] Scraping (Mouth) 12/11/2024 12:00 PM CDT 12/12/2024 2:20 AM CDT Narrative KASEY DOZIER - 12/17/2024 8:58 AM CDT Interpretation data: This culture is NOT intended for the detection of filamentous fungi, endemic mycosis, or Cryptococcus. If detected, yeast will be reported and identified. Routine susceptibility is not performed, but if required, please contact the Microbiology Laboratory at . [facility] MICROBIOLOGY - GENER AL ORDERABLES Final Result KASEY DOZIER [id number] Department [place] [address] * Throat culture Throat (12/11/2024 12:00 PM CDT) Report Final Report: Negative Comment:Testing performed by : [facility], [address] [place]., [address] Throat 12/11/2024 12:0 0 PM CDT 12/12/2024 2:19 AM CDT Narrative KASEY TASIA - 12/13/2024 2:51 PM CDT Testing performed by [facility] Microbiology Laboratory ([phone]). us [facility] MICROBIOLOGY - GENER AL ORDERABLES Final Result KASEY DOZIER [id number] Department [place] [address] from Last 3 Months Insurance Advance Directives For more information, please contact: [phone] Documents on File Type Date Recorded Patient Automated Manufacturing Instructor Expl anation ADVANCE DIRECTIVE 12/23/2013 12:00 AM LILIBETH R OF POLITICAL SCIENCE PROFESSOR FINANCIAL/MEDICAL Care Teams Sharepoint Developer Relationship Specialty Start Date End Date Micah Cao MD PCP - General Family Medicine 05/16/22 Micah Cao MD Family Medicine 05/13/22
--- OUTSIDE RECORDS SUMMARY | 2025-01-13 15:10 | XMS_ITS | Encounter Summary ---
Author Organization [facility] Healthcare Address [address] [place] [address] Care Team Providers Care Oceanography Professor Name Role Phone Micah Cao MD Primary Care Provider [phone] Micah Cao MD Unavailable [phone] Encounter Details Date Type Department Care Team (Late st Contact Info) Description 12/13/2024 Results Follow-Up [facility] Group Convenient Care at [address] [address] Dhruv Elizabeth NP [address] [place] [address] [address] [place] [address] Social History Tobacco Use Types [...] on file Legal Sex Female 9:55 PM GUEST SERVICES REPRESENTATIVE Gender Identity Female 08/25/2022 9:37 AM GUEST SERVICES REPRESENTATIVE Sexual Orientation Choose not to disclose 2021 9:37 AM GUEST SERVICES REPRESENTATIVE documented as of this encounter Plan of Treatment Not on file documented as of this encounter Visit Diagnoses Not on filedocumented in this encounter Care Teams Oceanography Professor Relationship Specialty Start Date End Date Micah Cao MD PCP - General Family Medicine 05/16/22 Micah Cao MD Family Medicine 05/13/22 documented as of this encounter
--- OUTSIDE RECORDS SUMMARY | 2025-01-13 15:10 | XMS_ITS | Encounter Summary ---
Author Organization [facility] Address [address] [facility] [place] [address] Care Team Providers Care Wire Preparation Worker Name Role Phone Micah Cao MD Primary Care Provider [phone] Encounter Details Date Type Department Care Team (Late st Contact Info) Description 06/18/2024 Telephone [facility] [address] [place] [phone] Nicole Rebolledo, TAHIRA-DOG BARBER [address] [place] [address] Social History Tobacco Use Types Packs/Day Years Used Date Smoking Tobacco: Never Smokeless Tobacco: Never Alcohol Use Standard Drinks/Week Comments No 0 (1 standard drink = 0.6 oz pur e alcohol) PHQ-2 Answer Date Recorded PHQ2 TOTAL SCORE 1 04/07/2022 Comments No Sex and Gender Information Value Date Recorded Sex Assigned at Not on file Legal Sex Female 5:39 AM DENTAL CLAIMS PROCESSOR Gender Identity Not on file Sexual Orientation [...] seizures if she doesn't get this medication) Pharmacy:[facility] in [place] Patient call back number: [phone] . Upcoming appointment scheduled for : 04/02/25 documented in this encounter Plan of Treatment Upcoming Encounters Date Type Department Care Team (Late st Contact Info) Description 04/08/2025 3:00 PM CDT Office Visit [facility] - Neurology [facility] [place] [address] Nicole Rebolledo APRN-DOG BARBER [address] [place] [address] documented as of this encounter Visit Diagnoses Not on filedocumented in this encounter Care Teams Wire Preparation Worker Relationship Specialty Start Date End Date Micah Cao MD [address] [place] [address] [address] [place] [address] PCP - General Family Medicine 01/03/25 documented as of this encounter
--- OUTSIDE RECORDS SUMMARY | 2025-01-13 15:10 | XMS_ITS | Encounter Summary ---
Author Organization [facility] Healthcare Address [address] [place] [address] Care Team Providers Care Pc Installation Engineer Name Role Phone Micah Cao MD Primary Care Provider [phone] Micah Cao MD Unavailable [phone] Encounter Details Date Type Department Care Team (Late st Contact Info) Description 04/15/2024 Telephone [facility] Medical Group Family Medicine at [address] [address] Micah Cao MD [address] [place] [address] Social History Tobacco Use Types Packs/Day [...] on file Legal Sex Female 9:55 PM SEGMENTAL WALL INSTALLER Gender Identity Female 08/25/2022 9:37 AM SEGMENTAL WALL INSTALLER Sexual Orientation Choose not to disclose 2021 9:37 AM SEGMENTAL WALL INSTALLER documented as of this encounter Plan of Treatment Not on file documented as of this encounter Visit Diagnoses Not on filedocumented in this encounter Care Teams Pc Installation Engineer Relationship Specialty Start Date End Date Micah Cao MD PCP - General Family Medicine 05/16/22 Micah Cao MD Family Medicine 05/13/22 documented as of this encounter
--- OUTSIDE RECORDS SUMMARY | 2025-01-13 15:10 | XMS_ITS | Clinical Summary ---
Author Organization [facility] Virtual Care Address [address] [place] [address] Phone Care Team Providers Care A Class Lineman Name Role Phone Micah Cao MD Primary Care Provider [phone] Micah Cao MD Unavailable [phone] Allergies Active Allergy Reactions Criticality Noted Date [...] 09/26/2023 Assessment & Plan (09/26/2023 9:30 AM CHIEF MEDICAL PHYSICIST): RICE, Xray, Referral pain?? Chronic left-sided low back pain with left-sided sciatica 06/13/2022 Assessment & Plan (09/26/2023 9:27 AM CHIEF MEDICAL PHYSICIST): Chronic pain. X-ray lumbar spine. With left hip. Has seen pain management in the past. Has done physical therapy. BMI 29. Chronic hydrocodone use. Reviewed okay. BETO (generalized anxiety disorder) 06/13/2022 Assessment & Plan (09/26/2023 9:28 AM CHIEF MEDICAL PHYSICIST): Counseling recommended. Currently off Celexa. Seizure disorder 11/12/2021 Assessment & Plan (09/26/2023 9:32 AM CHIEF MEDICAL PHYSICIST): Referral to neurology. On Benzo. 2019. For seizures. If miss dose has a seizure. Resolved Problems Problem Noted Date Diagnosed Date Resolved Date Generalized epilepsy 06/13/2022 024 Assessment & Plan (09/26/2023 9:27 AM CHIEF MEDICAL PHYSICIST): Currently stable. Referral to Neurology. Discussed clonazepam and hydrocodone interaction. Encounters Date Type Department Care Team Description 12/13/2024 Results Follow-Up [facility] Convenient Care at [address] [address] Dhruv Elizabeth NP 12/11/2024 7:41 PM CDT - 12/11/2024 11:59 PM CDT Hospital Encounter [address] [address] Nasopharyngitis; Parotid gland enlargement Discharge Disposition: Discharge to home or self care 12/11/2024 4:45 PM CDT Office Visit [facility] Convenient Care at [address] [address] Charley Snyder PA Nasopharyngitis (Primary Dx); Parotid gland enlargement 12/04/2024 Telephone [facility] Family Medicine at [address] [place] [address] Micah Cao MD Medication Request from Last 3 Months Immunizations Immunization Administration [...] on file Legal Sex Female 9:55 PM CHIEF MEDICAL PHYSICIST Gender Identity Female 08/25/2022 9:37 AM CHIEF MEDICAL PHYSICIST Sexual Orientation Choose not to disclose 2021 9:37 AM CHIEF MEDICAL PHYSICIST Obstetrics History Last Filed Vital Signs Vital [...] growth of Kendra Comment:Testing performed by : [facility], [address] [place]., [address] Scraping (Mouth) 12/11/2024 12:00 PM CDT 12/12/2024 [...] AL ORDERABLES Final Result Performing Organization Address [facility] Co de Phone Number KASEY DOZIER [id number] [address] Department [employer] [place] [address] * Throat culture Throat (12/11/2024 12:00 PM CDT) Report Final Report: Negative Comment:Testing performed by : [facility], [address] [place]., [address] Throat 12/11/2024 12:0 0 PM CDT 12/12/2024 2:19 AM CDT Narrative KASEY - 12/13/2024 2:51 PM CDT Testing performed by [facility] Microbiology Laboratory ([phone]). [facility] MICROBIOLOGY - GENER AL ORDERABLES Final Result Performing Organization Address City/State/[facility] Co de Phone Number KASEY TASIA [phone] [address] Department [employer] [place] [address] from Last [address] [place] [address] Advance Directives For more information, please contact: [phone] Documents on File Type Date Recorded Patient Microbiology Teacher Expl anation ADVANCE DIRECTIVE 12/23/2013 12:00 AM LILIBETH Daniel OF JAVA SQL DEVELOPER FINANCIAL/MEDICAL Care Teams A Class Lineman Relationship Specialty Start Date End Date Micah Cao MD PCP - General Family Medicine 05/16/22 Micah Cao MD Family Medicine 05/13/22
--- OUTSIDE RECORDS SUMMARY | 2025-01-13 15:10 | XMS_ITS | Patient Health Record ---
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 confirmed Problem Moderate recurrent major depression (65426430) MDD (major depressive disorder), recurrent episode, moderate (F33.1) Active confirmed Problem Generalized anxiety disorder (04568666) Anxiety, generalized (F41.1) Active confirmed Problem Obesity (201886162) Obesity, unspecified classification, unspecified obesity type, unspecified whether serious comorbidity present (E66.9) Active confirmed Encounters Encounter Location Date Provider Diagnosis [address] [place] [address] 03/25/2024 Angelika Casiano [facility] [address] [place] [address] 07/11/2024 Kamaljit Zimmerman Plan Of Treatment No Information Insurance Providers Payer Name Payer Address Payer Phone Subscriber Number Group Number Insured Name Patient Relationship to Insured Coverage Start Date Coverage End Date [facility] Attn Claims Department [address] [place] [address] [phone] [id number] Mckenna Newman Self - patient is the insured 3 [facility] [address] [place] [id number] Mckenna Newman Self - patient is the insured 3 Medical (General) History Medical History History ICD Code back pain Surgical History Surgery Date(Month/Year) HYSTERECTOMY 2007 section 2001, 2002, 2005
--- OUTSIDE RECORDS SUMMARY | 2025-01-13 15:10 | XMS_ITS | Encounter Summary ---
Author Organization [facility] Facility Care Team Providers Care Neuropsychiatric Aide Name Role Phone Unknown, Notinfile Primary Care Provider Unavail able Micah Cao MD Primary Care Provider [phone] Anais Walker Primary Care Provider + Micah Cao MD Primary Care Provider Micah Cao MD Unavailable [phone] Encounter Details Date Type Department Care Team (Latest Contact Info) Description 02/06/2018 Orders Only [facility] ProviderDhaval MD [address] [place] [address] Social History Tobacco Use Types Packs/Day Years Used Date Smoking Tobacco: Never Assessed Comments Unknown Sex and Gender Information Value Date Recorded Sex Assigned at Not on file Legal Sex Female 9:55 PM MECHANICAL ADJUSTER Gender Identity Female 08/25/2022 9:37 AM MECHANICAL ADJUSTER Sexual Orientation Choose not to disclose 2021 9:37 AM MECHANICAL ADJUSTER documented as of this encounter Plan of [...] documented as of this encounter Care Teams Neuropsychiatric Aide Relationship Specialty Start Date End Date Unknown, Notinfile PCP - General 08/15/18 10/05/20 Micah Cao MD PCP - General Family Medicine 03/18/22 05/12/22 Anais Walker PA PCP - General Family Medicine 05/13/22 05/15/22 Micah Cao MD PCP - General Family Medicine 05/16/22 Micah Cao MD Family Medicine 05/13/22 documented as of this encounter
== END 2025-01-13 15:06 | disposition home or self-care (01) ==
LOC: CHSIMG 15:08
PROVIDERS: PCP Family Medicine; Visit Provider Otolaryngology
DX: E04.1 Nontoxic single thyroid nodule (principal)
CPT/HCPCS: 76536

== ENCOUNTER 2025-01-30 10:58 | Outpatient (CLI) | payer OTHER, SELFPAY ==
--- NOTE | ~2025-01-30 | XR_ITS ---
Cervical Spine: AP, lateral, open-mouth views Clinical History: Pain Findings: The normal lordotic curve is maintained. The vertebral bodies and posterior elements appea r intact. The intervertebral disc spaces are well maintained. Pre-vertebral soft tissues are unremar kable. Impression: No significant abnormality is seen. Reviewed, dictated and finalized at [facility]. Impression: No significant abnormality is seen.
--- OUTSIDE RECORDS SUMMARY | 2025-01-30 11:03 | XMS_ITS | Clinical Summary ---
Author Organization [facility] Virtual Care Address [address] [place] [address] Phone Care Team Providers Care Senior Industrial Engineer Name Role Phone Micah Cao MD Primary Care Provider [phone] Aj Black MD Unavailable Allergies Active Allergy Reactions Criticality Noted Date Comments Codeine Diarrhea,Stomach upset,Nausea And Vomiting Low 01/28/2015 Stomach/GI Upset Takes norco without difficulty Ketorolac Tromethamine Swelling Medium 02/16/2015 Swelling of the upper lip Levetiracetam Stomach upset Low 03/18/2019 Morphine Rash Medium 11/11/2018 Rash Medications OXcarbazepine (TRILEPTAL) 150 mg tabletIndication s:Seizure disorder (HCC) Take one tablet po bid for one week, then 2 tablets po bid 120 tablet 3 4 Active Additional Information Patient not taking.Reported on 01/20/2025 HYDROcodone-acet aminophen (NORCO) 10-325 mg per tabletIndication s:Pain Take 1 tablet by mouth every 12 (twelve) hours as needed for pain 60 tablet 5 Active irbesartan (AVAPRO) 75 mg tabletIndication s:Essential hypertension Take 1 tablet (75 mg total) by mouth nightly 30 tablet 5 Active meloxicam (MOBIC) 7.5 mg tabletIndication s:Pain of right hand Take 1 tablet (7.5 mg total) by mouth daily 30 tablet 5 02/20/20 25 Active Active Problems Problem Noted Date Diagnosed Date Essential hypertension 01/20/2025 Left hip pain 09/26/2023 Assessment & Plan (09/26/2023 9:30 AM HOUSE REPAIRER): Jose Armando CLINE, Referral pain?? Chronic left-sided low back pain with left-sided sciatica 06/13/2022 Assessment & Plan (09/26/2023 9:27 AM HOUSE REPAIRER): Chronic pain. X-ray lumbar spine. With left hip. Has seen pain management in the past. Has done physical therapy. BMI 29. Chronic hydrocodone use. Reviewed okay. BETO (generalized anxiety disorder) 06/13/2022 Assessment & Plan (09/26/2023 9:28 AM HOUSE REPAIRER): Counseling recommended. Currently off Celexa. Seizure disorder 11/12/2021 Assessment & Plan (09/26/2023 9:32 AM HOUSE REPAIRER): Referral to neurology. On 2018. For seizures. If miss dose has a seizure. Resolved Problems Problem Noted Date Diagnosed Date Resolved Date Generalized epilepsy 06/13/2022 08// 024 Assessment & Plan (09/26/2023 9:27 AM HOUSE REPAIRER): Currently stable. Referral to Neurology. Discussed clonazepam and hydrocodone interaction. Encounters Date Type Department Care Team Description 01/22/2025 4:20 AM CDT - 01/22/2025 11:59 PM CDT Hospital Encounter [facility] [address] [place] [address] Discharge Disposition: Discharge to home or self care 01/22/2025 3:59 AM CDT - 01/22/2025 11:59 PM CDT Hospital Encounter [facility]) [address] [place] [address] Discharge Disposition: Discharge to home or self care 01/22/2025 3:47 AM CDT - 01/22/2025 11:59 PM CDT Hospital Encounter [facility]) [address] [place] [address] Discharge Disposition: Discharge to home or self care 01/22/2025 Results Follow-Up [facility] Family Medicine at [address] [place] [address] Micah Cao MD SCAN - LABS 01/21/2025 Telephone [facility] ([facility] - [facility] ENT [address] [facility] Advanced Medicine 11th [place] [address] [place] [address] Leslee Block CMA 01/20/2025 3:15 PM CDT Office Visit [facility] Family Medicine at [address] [place] [address] Chata Bahena PA Essential hypertension (Primary Dx); Pain of right hand; Multiple thyroid nodules 12/13/2024 Results Follow-Up [facility] Con[facility]ient Care at [address] [phone] Dhruv Elizabeth NP Throat culture Throat, Kendra (yeast) culture Scraping Mouth 12/11/2024 7:41 PM CDT - 12/11/2024 11:59 PM CDT Hospital Encounter [address] [address] Nasopharyngitis; Parotid gland enlargement Discharge Disposition: Discharge to home or self care 12/11/2024 4:45 PM CDT Office Visit [facility] Care at [address] [address] Charley Snyder PA Nasopharyngitis (Primary Dx); Parotid gland enlargement 12/04/2024 Telephone [facility] Family Medicine at [address] [place] [address] Micah Cao MD Medication Request from Last 3 Months Immunizations Immunization Administration Dates Next Due Influenza, Trivalent, Preser vative Free, Intramuscular 06/22/2016 Influenza, Unspecified 07/05/2024(Deferr ed: Patient Refused),09/26/2023(Deferred: Patient Refused),07/03/2022(Deferred: Patient Refused),06/13/2022(Deferred: Patient Refused),06/04/2021(Deferred: Patient Refused) Surgical History Surgery Date Site/Laterality Comments HYSTERECTOMY SECTION LUNG SURGERY Right Medical History Medical History Date Comments Seizures (HCC) Epilepsy (HCC) Anxiety Migraines Family History Medical History Relation Name Comments Colon cancer Maternal Grandfather Lung cancer Maternal Grandmother Hypertension Mother Relation Name Status Comments Father Alive Maternal Grandfather Maternal Grandmother Mother Alive Social History Tobacco Use Types Packs/Day Years Used Date Smoking Tobacco: Never Tobacco Cessation:Counseling Given: Not Answered AUDIT-C Answer Date Recorded Q1: How often do you have a drink containing alcohol? Never 01/20/2025 Q2: How many drinks containi ng alcohol do you have on a typical day when you are drinking? Patient does not drink Q3: How often do you have si x or more drinks on one occasion? Never 01/20/2025 PHQ-2 Answer Date Recorded PHQ-2 Total Score (If total score is 3 or more points, staff should administer the PHQ-9) 2 04/05/2024 Comments No Sex and Gender Information Value Date Recorded Sex Assigned at Not on file Legal Sex Female 9:55 PM HOUSE REPAIRER Gender Identity Female 08/25/2022 9:37 AM HOUSE REPAIRER Sexual Orientation Choose not to disclose 2021 9:37 AM HOUSE REPAIRER Obstetrics History Last Filed Vital Signs Vital Sign Reading Time Taken Comments Blood Pressure 156/100 01/20/2025 3:16 PM CDT Pulse 96 01/20/2025 3:16 PM CDT Temperature 36.7 C (98.1 F) 01/20/2025 3:16 PM CDT Respiratory Rate 18 01/20/2025 3:16 PM CDT Oxygen Saturation 98% 01/20/2025 3:16 PM CDT Inhaled Oxygen Concentration - - Weight 68.3 kg (150 lb 8 oz) 01/20/2025 3:16 PM CDT Height 157.5 cm (5' 2) 01/20/2025 3:16 PM CDT Body Mass Index 27.53 01/20/2025 3:16 PM CDT Plan of Treatment Health Maintenance [...] Procedure Name Priority Date/Time Associated Diagnosis Comments NEURO CT OUTSIDE REFERENCE Routine 01/22/2025 4:[address] OUTSIDE REFERENCE Routine 01/22/2025 3:59 AM CDT US TRANSFER OF OUTSIDE FILMS Routine 01/22/2025 3:47 AM CDT SCAN - LABS 01/10/2025 POCT RAPID STREP Routine 12/11/2024 4:55 PM CDT Nasopharyngitis KENDRA (YEAST) CULTURE Routine 12/11/2024 12:00 PM CDT THROAT CULTURE Routine 12/11/2024 12:00 PM CDT Nasopharyngitis Parotid gland enlargement from Last 3 Months Results * Neuro CT Outside Reference (01/22/2025 4:20 AM CDT) Impressions RAD[facility]PACS_LOCATED WITHIN [facility] - 01/22/2025 4:20 AM CDT These images are for Reference purposes only and have not been reviewed by [facility]. There will be no report generated by a [facility]iologist. Narrative RAD_PACS_[facility] - 01/22/2025 4:20 AM CDT EXAMINATION: Images For Reference Purposes Only Sherrell Sumner MD IMG CT PROCEDURES Agueda l Result Performing Organization Address [facility] Co de Phone Number [email or web address] * Neuro CT Outside Reference (01/22/2025 3:59 AM CDT) Impressions [facility] - 01/22/2025 3:59 AM CDT These images are for Reference purposes only and have not been reviewed by [facility]. There will be no report generated by a [facility]iologist. Narrative [facility]_PACS[facility] - 01/22/2025 3:59 AM CDT EXAMINATION: Images For Reference Purposes Only Sherrell Sumner MD IMG CT PROCEDURES Agueda l Result Performing Organization Address [facility] de Phone Number [email or web address] * US Outside Reference (01/22/2025 3:47 AM CDT) Impressions [facility] - 01/22/2025 3:47 AM CDT These images are for Reference purposes only and have not been reviewed by [facility]. There will be no report generated by a [facility]iologist. Narrative [facility] - 01/22/2025 3:47 AM CDT EXAMINATION: Images For Reference Purposes Only Sherrell Sumner MD IMG US PROCEDURES Agueda l Result Performing Organization Address [facility] Co de Phone Number [email or web address] * SCAN - LABS (01/10/2025) Micah Cao MD Final Result * POCT rapid strep A (12/11/2024 4:55 PM CDT) Rapid Strep A, POC Negative Negative Swab 12/11/2024 4:55 PM CDT us Charley BROWN POINT OF CARE TEST ORDER ABRIL Final Result * Kendra (yeast) culture Scraping Mouth (12/11/2024 12:00 PM CDT) Report Final Report: No growth of Kendra Comment:Testing performed by : [facility], [address] [facility] [place]., [address] Scraping (Mouth) 12/11/2024 12:00 PM CDT 12/12/2024 [...] AL ORDERABLES Final Result Performing Organization Address City/State/[facility] Co mn Phone Number KASEY DOZIER [address] Department [place] [address] * Throat culture Throat (12/11/2024 12:00 PM CDT) Report Final Report: Negative Comment:Testing performed by : [facility], [address] [facility] [place]., [address] Throat 12/11/2024 12:0 0 PM CDT 12/12/2024 2:19 AM CDT Narrative KASEY Gladys 12/13/2024 2:51 PM CDT Testing performed by [facility] Microbiology Laboratory ([phone]). [facility] MICROBIOLOGY - GENER AL ORDER[place] [address] [address] Department [place] [address] from Last 3 Months Insurance Member Subscriber Plan / Payer (Ef fective 2021-Present) Name:MCKENNA LOWE Relation to Subscriber:Self Name:Mckenna Sands Payer ID:[id number] (NAIC) Group ID:Not on file Type:MEDICAID RISK OTHER Address: ATTN: CLAIMS DEPT [address] [facility] [place] [phone] Member Subscriber Plan / Payer (Ef fective 2025-Present) Name:Mckenna Sands P Relation to Subscriber:Self Name:Mckenna Sands Payer ID:[id number] (NAIC) Group ID:Not on file Type:MEDICAID RISK OTHER Address: ATTN: CLAIMS DEPT [address] [place] [phone] Advance Directives For more information, please contact: [phone] Documents on File Type Date Recorded Patient Batch Or Continuous Still Operator Expl anation ADVANCE DIRECTIVE 12/23/2013 12:00 AM LILIBETH R OF MANAGER CREDIT FINANCIAL/MEDICAL Care Teams Senior Industrial Engineer Relationship Specialty Start Date End Date Micah Cao MD [address] [place] [address] [place] [address] PCP - General Family Medicine 05/16/22 Aj Black MD [address] [place] [address] [place] [address] Referring Physician Otolaryngology 01/23/25
--- OUTSIDE RECORDS SUMMARY | 2025-01-30 11:03 | XMS_ITS | Clinical Summary ---
Author Organization [facility] [employer] Address [address] [facility] [place] [address] Care Team Providers Care Heavy Mobile Equipment Operator Name Role Phone Micah Cao MD Primary Care Provider [phone] Source Comments [facility] [employer],non-owned Affiliates and Associated Physician Practices is amultiple site organization consisting of ambulatory clinics and hospital sitesin [place], [place], [place] and [place]. This disclosure is being madepursuant to the Care Everywhere program and may not contain all information available regarding this patient. Last updated 18.[facility] [employer] Allergies Active Allergy Reactions Criticality Noted Date [...] 12/10/2024 Refill [facility] - Neurology [facility] [place] [address] Nicole Rebolledo APRN-INFECTIOUS DISEASES PHYSICIAN Refill Request from Last 3 Months Family [...] on file Legal Sex Female 5:39 AM AIRPORT TRAFFIC CONTROLLER Gender Identity Not on file Sexual Orientation [...] P M CDT Height 157.5 cm (5' 2) 04/07/2022 1:23 PM CDT Body Mass Index 26.74 04/07/2022 1:23 PM CDT Plan of Treatment Upcoming Encounters Date Type Department Care Team (Late st Contact Info) Description 04/08/2025 3:00 PM CDT Office Visit [facility] - Neurology [address] [facility] [place] [phone] Nicole Rebolledo, TAHIRA-INFECTIOUS DISEASES PHYSICIAN [address] [place] [address] Health Maintenance Due Date Last Done Comments [...] this topic Medical Devices Implanted Type Area Threader Device Identifier Shelf Expiration Date Model / Serial / Lot Floseal Hemostatic Matrix Implanted:Qty: 1 on 02/03/2015 by Ishan Laboy MD at [facility] 05/04/2016 [id number] / [id number] / [id number] Explanted Type Area Threader Device Identifier Shelf Expiration Date Model / Serial / Lot [employer]ision [place] Ureteral Kit Implanted:Qty: 1 Explanted:Qty: 1 on 02/25/2016 by Ishan Laboy MD at [facility] Bilateral: Ureter 04/03/2017 [id number] / / [id number] Description:lighted ureteral stents Procedures Procedure Name Priority Date/Time Associated Diagnosis Comments COMPREHENSIVE METABOLIC PANEL STAT 05/08/2019 5:23 PM CDT from Last 3 Months or Most Recently Relevant to Health Maintenance Results * COMPREHENSIVE METABOLIC PANEL (05/08/2019 5:23 PM CDT) BUN 15 7 - 26 mg/dL 05/08/2019 5:42 PM [facility] Creatinine 0.9 0.6 - 1.2 mg/dL 05/08/2019 5:42 PM [facility] Sodium 142 136 - 145 mmol/L 05/08/2019 5:42 PM [facility] Potassium 3.6 3.5 - 4.5 mmol/L 05/08/2019 5:42 PM [facility] Chloride 105 98 - 107 mmol/L 05/08/2019 5:42 PM [facility] CO2 24 22 - 29 mmol/L 05/08/2019 5:42 PM [facility] Glucose 99 70 - 115 mg/dL 05/08/2019 5:42 PM [facility] Calcium 9.9 8.4 - 10.2 mg/dL 05/08/2019 5:42 PM [facility] Protein Total 7.8 6.0 - 8.3 g/dL 05/08/2019 5:42 PM [facility] Albumin 4.7 3.4 - 5.0 g/dL 05/08/2019 5:42 PM [facility] Bilirubin Total 0.4 0.2 - 1.2 mg/dL 05/08/2019 5:42 PM [facility] Alkaline Phosphatase 47 40 - 150 Units/L 05/08/2019 5:42 PM [facility] ALT 9 0 - 55 Units/L 05/08/2019 5:42 PM [facility] AST 19 5 - 34 Units/L 05/08/2019 5:42 PM [facility] Anion Gap 17 8 - 18 05/08/2019 5:42 PM [facility] BUN/Creatinine Ratio 17 7 - 23 05/08/2019 5:42 PM [facility] Osmolality Calculated 295 270 - 300 mOsm/kg 05/08/2019 5:42 PM [facility] Albumin/Globulin Ratio 1.5 1.1 - 2.3 05/08/2019 5:42 PM [facility] eGFR >60 >60 mL/min/1.7 3 m2 05/08/2019 5:42 PM [facility] Blood BLOOD SPECIMEN / Unknown Venipuncture / Unknown 05/08/2019 5:23 PM CDT 05/08/2019 5:23 PM T Eb Zuñiga MD LAB - CHEMISTRY ORDERABLES nal Result [facility] [address] [place] [address] from Last 3 Months or Most Recently Relevant to Health Maintenance Insurance [facility] Advance Directives * Full Code (Latest Code Status on File) Date Activated Date Inactivated Comments 02/25/2016 1:00 PM 02/27/2016 7:26 PM * Full Code Date Activated Date Inactivated Comments 02/03/2015 1:07 PM 02/05/2015 7:49 PM Care Teams Heavy Mobile Equipment Operator Relationship Specialty Start Date End Date Micah Cao MD [address] [place] [phone] PCP - General Family Medicine 01/03/25
--- OUTSIDE RECORDS SUMMARY | 2025-01-30 11:03 | XMS_ITS | Encounter Summary ---
Author Organization [facility] Address [address] [facility] [place] [address] Care Team Providers Care Manager Bar Name Role Phone Micah Cao MD Primary Care Provider [phone] Encounter Details Date Type Department Care Team (Late st Contact Info) Description 06/18/2024 Telephone [facility] - Neurology [address] [place] [phone] Nicole Rebolledo, TAHIRA-GEOTHERMAL FIELD TECHNICIAN [address] [place] [phone] Social History Tobacco Use Types Packs/Day Years Used Date Smoking Tobacco: Never Smokeless Tobacco: Never Alcohol Use Standard Drinks/Week Comments No 0 (1 standard drink = 0.6 oz pur e alcohol) PHQ-2 Answer Date Recorded PHQ2 TOTAL SCORE 1 04/07/2022 Comments No Sex and Gender Information Value Date Recorded Sex Assigned at Not on file Legal Sex Female 5:39 AM RECORDING STUDIO INTERN Gender Identity Not on file Sexual Orientation [...] seizures if she doesn't get this medication) Pharmacy:[facility] in [place] Patient call back number: [phone] . Upcoming appointment scheduled for : 04/02/25 documented in this encounter Plan of Treatment Upcoming Encounters Date Type Department Care Team (Late st Contact Info) Description 04/08/2025 3:00 PM CDT Office Visit [facility] - Neurology [facility] [place] [address] Nicole Rebolledo APRN-GEOTHERMAL FIELD TECHNICIAN [address] [place] [address] documented as of this encounter Visit Diagnoses Not on filedocumented in this encounter Care Teams Manager Bar Relationship Specialty Start Date End Date Micah Cao MD [address] [place] [address] [address] [place] [address] PCP - General Family Medicine 01/03/25 documented as of this encounter
--- OUTSIDE RECORDS SUMMARY | 2025-01-30 11:03 | XMS_ITS | Encounter Summary ---
Author Organization [facility] Address [address] [place] [address] Care Team Providers Care Abrasive Coating Machine Operator Name Role Phone Micah Cao MD Primary Care Provider [phone] Micah Cao MD Unavailable [phone] Aj Black MD Unavailable Encounter Details Date Type Department Care Team (Late st Contact Info) Description 12/13/2024 Results Follow-Up [facility] Medical Group Convenient Care at [address] [address] Dhruv Elizabeth NP [address] [facility] [address] [place] [address] Throat culture Throat, Kendra (yeast) culture Scraping Mouth Social History Tobacco Use Types Packs/Day Years [...] on file Legal Sex Female 9:55 PM PATROL DRIVER Gender Identity Female 08/25/2022 9:37 AM PATROL DRIVER Sexual Orientation Choose not to disclose 2021 9:37 AM PATROL DRIVER documented as of this encounter Plan of Treatment Not on file documented as of this encounter Visit Diagnoses Not on filedocumented in this encounter Care Teams Abrasive Coating Machine Operator Relationship Specialty Start Date End Date Micah Cao MD [address] [facility] [address] [place] [address] [place] [address] PCP - General Family Medicine 05/16/22 Micah Cao MD [address] [facility] [address] [place] [address] [place] [address] Family Medicine 05/13/22 01/22/25 Aj Black MD [address] [place] [address] [place] [address] Referring Physician Otolaryngology 01/23/25 documented as of this encounter
--- OUTSIDE RECORDS SUMMARY | 2025-01-30 11:03 | XMS_ITS | Encounter Summary ---
Author Organization [facility] Healthcare Address [address] [place] [address] Care Team Providers Care Other Sales Support Worker Name Role Phone Micah Cao MD Primary Care Provider [phone] Micah Cao MD Unavailable [phone] Aj Black MD Unavailable Encounter Details Date Type Department Care Team (Late st Contact Info) Description 04/15/2024 Telephone [facility] Medical Group Family Medicine at [address] [address] Micah Cao MD [address] [place] [address] Social History Tobacco Use Types Packs/Day [...] on file Legal Sex Female 9:55 PM RETAIL STORE ASSISTANT Gender Identity Female 08/25/2022 9:37 AM RETAIL STORE ASSISTANT Sexual Orientation Choose not to disclose 2021 9:37 AM RETAIL STORE ASSISTANT documented as of this encounter Plan of Treatment Not on file documented as of this encounter Visit Diagnoses Not on filedocumented in this encounter Care Teams Other Sales Support Worker Relationship Specialty Start Date End Date Micah Cao MD [address] [facility] [address] [place] [address] [place] [address] PCP - General Family Medicine 05/16/22 Micah Cao MD [address] [facility] [address] [place] [address] [place] [address] Family Medicine 05/13/22 01/22/25 Aj Black MD [address] [facility] [place] [address] Referring Physician Otolaryngology 01/23/25 documented as of this encounter
--- OUTSIDE RECORDS SUMMARY | 2025-01-30 11:03 | XMS_ITS | Encounter Summary ---
Author Organization [facility] Care Team Providers Care Medical Referral Coordinator Name Role Phone Unknown, Notinfile Primary Care Provider Unavail able Micah Cao MD Primary Care Provider [phone] Anais Walker Primary Care Provider + Micah Cao MD Primary Care Provider [phone] Micah Cao MD Unavailable [phone] Aj Black MD Unavailable Encounter Details Date Type Department Care Team (Latest Contact Info) Description 02/06/2018 Orders Only [facility] ProviderDhaval MD [address] [place] [address] Social History Tobacco Use Types Packs/Day Years Used Date Smoking Tobacco: Never Assessed Comments Unknown Sex and Gender Information Value Date Recorded Sex Assigned at Not on file Legal Sex Female 9:55 PM NET APPLICATION ARCHITECT Gender Identity Female 08/25/2022 9:37 AM NET APPLICATION ARCHITECT Sexual Orientation Choose not to disclose 2021 9:37 AM NET APPLICATION ARCHITECT documented as of this encounter Plan of [...] AM CDT Ordered by an unspecified provider. us Historical Provider Final Res ult * PROCEDURE [...] as of this encounter Care Teams Medical Referral Coordinator Relationship Specialty Start Date End Date Unknown, Notinfile PCP - General 08/15/18 10/05/20 Micah Cao MD PCP - General Family Medicine 03/18/22 05/12/22 Anais Walker PA PCP - General Family Medicine 05/13/22 05/15/22 Micah Cao MD [address] [facility] [place] [address] PCP - General Family Medicine 05/16/22 Micah Cao MD Family Medicine 05/13/22 01/22/25 Aj Blcak MD [address] [facility] [address] [place] [address] [place] [address] Referring Physician Otolaryngology 01/23/25 documented as of this encounter
--- OUTSIDE RECORDS SUMMARY | 2025-01-30 11:03 | XMS_ITS | Patient Health Record ---
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), inattentive type (F90.0) Active confirmed Problem Moderate recurrent major depression (41119273) MDD (major depressive disorder), recurrent episode, moderate (F33.1) Active confirmed Problem Generalized anxiety disorder (40670895) Anxiety, generalized (F41.1) Active confirmed Problem Obesity (912767656) Obesity, unspecified classification, unspecified obesity type, unspecified whether serious comorbidity present (E66.9) Active confirmed Encounters Encounter Location Date Provider Diagnosis [address] [place] [address] 03/25/2024 [facility] [address] [place] [address] 07/11/2024 Kamaljit Zimmerman Plan Of Treatment No Information Insurance Providers Payer Name Payer Address Payer Phone Subscriber Number Group Number Insured Name Patient Relationship to Insured Coverage Start Date Coverage End Date [facility] Attn Claims Department [address] [place] [address] [phone] [id number] Mckenna Newman Self - patient is the insured 3 [employer] Attn Claims Department [address] [place] [address] [id number] Mckenna Newman Self - patient is the insured 3 Medical (General) History Medical History History ICD Code back pain Surgical History Surgery Date(Month/Year) HYSTERECTOMY 2007 section 2001, 2002, 2005
--- OUTSIDE RECORDS SUMMARY | 2025-01-30 11:03 | XMS_ITS | Referral Summary ---
Author Organization [facility] Virtual Care Address [address] [place] [phone] Phone Care Team Providers Care Bmet Name Role Phone Micah Cao MD Primary Care Provider [phone] Aj Black MD Unavailable Encounters Date Type Department Care Team Description 01/22/2025 Results Follow-Up [facility] Family Medicine at [address] [place] [phone] Micah Cao MD SCAN - LABS 01/22/2025 4:20 AM CDT - 01/22/2025 11:59 PM CDT Hospital Encounter [facility] ([facility]) [address] [place] [id number] Discharge Disposition: Discharge to home or self care 01/22/2025 3:59 AM CDT - 01/22/2025 11:59 PM CDT Hospital Encounter [facility] ([facility]) [address] [place] [address] Discharge Disposition: Discharge to home or self care 01/22/2025 3:47 AM CDT - 01/22/2025 11:59 PM CDT Hospital Encounter [facility] ([facility]) [address] [place] [address] Discharge Disposition: Discharge to home or self care 01/21/2025 Telephone [facility] ([facility]) - [facility] ENT [address] [facility] Advanced Medicine 11th [place] [address] [place] [address] Leslee Block CMA 01/20/2025 3:15 PM CDT Office Visit [facility] Family Medicine at [address] [place] [phone] Chata Bahena PA Essential hypertension (Primary Dx); Pain of right hand; Multiple thyroid nodules 12/13/2024 Results Follow-Up [facility] Care at [address] [address] Dhruv Elizabeth NP Throat culture Throat, Kendra (yeast) culture Scraping Mouth 12/11/2024 7:41 PM CDT - 12/11/2024 11:59 PM CDT Hospital Encounter [facility] [address] [place] [address] Nasopharyngitis; Parotid gland enlargement Discharge Disposition: Discharge to home or self care 12/11/2024 4:45 PM CDT Office Visit [facility] Care at [address] [address] Charley Snyder PA Nasopharyngitis (Primary Dx); Parotid gland enlargement 12/04/2024 Telephone [facility] Family Medicine at [address] [place] [address] Micah Cao MD Medication Request [...] 09/26/2023 Assessment & Plan (09/26/2023 9:30 AM TOW TRUCK DRIVER): Jose Armando CLINE, Referral pain?? Chronic left-sided low back pain with left-sided sciatica 06/13/2022 Assessment & Plan (09/26/2023 9:27 AM TOW TRUCK DRIVER): Chronic pain. X-ray lumbar spine. With left hip. Has seen pain management in the past. Has done physical therapy. BMI 29. Chronic hydrocodone use. Reviewed okay. BETO (generalized anxiety disorder) 06/13/2022 Assessment & Plan (09/26/2023 9:28 AM TOW TRUCK DRIVER): Counseling recommended. Currently off Celexa. Seizure disorder 11/12/2021 Assessment & Plan (09/26/2023 9:32 AM TOW TRUCK DRIVER): Referral to neurology. On 2018. For seizures. If miss dose has a seizure. Resolved Problems Problem Noted Date Diagnosed Date Resolved Date Generalized epilepsy 06/13/2022 082 024 Assessment & Plan (09/26/2023 9:27 AM TOW TRUCK DRIVER): Currently stable. Referral to Neurology. Discussed clonazepam [...] on file Legal Sex Female 9:55 PM TOW TRUCK DRIVER Gender Identity Female 08/25/2022 9:37 AM TOW TRUCK DRIVER Sexual Orientation Choose not to disclose 2021 9:37 AM TOW TRUCK DRIVER Last Filed Vital Signs Vital Sign Reading [...] 01/20/2025 3:16 PM CDT Plan of Treatment Not on [...] Outside Reference (01/22/2025 4:20 AM CDT) Impressions [facility] - 01/22/2025 4:20 AM CDT These images are for Reference purposes only and have not been reviewed by [facility]. There will be no report generated by a [facility]iologist. Narrative RAD_PACS_[facility] - 01/22/2025 4:20 AM CDT EXAMINATION: Images For Reference Purposes Only Sherrell Sumner MD IMG CT PROCEDURES Agueda l Result [facility] * Neuro CT Outside Reference (01/22/2025 [...] MD IMG CT PROCEDURES Agueda l Result [facility] * US Outside Reference (01/22/2025 3:47 [...] PROCEDURES Agueda l Result Performing Organization Address City/[facility]/ZIP Co de Phone Number RAD_PACS[facility] * SCAN [...] performed by : [facility], [address] [facility], [place]., [address] Scraping (Mouth) 12/11/2024 12:00 PM CDT 12/12/2024 [...] GENER AL ORDERABLES Final Result KASEY DOZIER [address] [address] Department of Laboratories [place], [place] [id number] * Throat culture Throat (12/11/2024 12:00 PM CDT) Report Final Report: Negative Comment:Testing performed by : [facility], [address] [place]., [address] Throat 12/11/2024 12:0 0 PM CDT 12/12/2024 2:19 AM CDT Narrative KASEY - 12/13/2024 2:51 PM CDT Testing performed by [facility] ([phone]). [facility] MICROBIOLOGY - GENER AL ORDERABLES Final Result Performing Organization Address [facility] Co de Phone Number KASEY DOZIER [phone] [address] [place] [address] from Last 3 Months Insurance Advance Directives For more information, please contact: [phone] Documents on File Type Date Recorded Patient Sock Drier Expl anation ADVANCE DIRECTIVE 12/23/2013 12:00 AM LILIBETH R OF ELECTRICAL PROJECT ENGINEER FINANCIAL/MEDICAL Care Teams Bmet Relationship Specialty Start Date End Date Micah Cao MD [facility] [facility] [place] [address] PCP - General Family Medicine 05/16/22 Aj Black MD [address] [facility] [place] [address] Referring Physician Otolaryngology 01/23/25
--- OUTSIDE RECORDS SUMMARY | 2025-01-30 11:03 | XMS_ITS | Encounter Summary ---
Author Organization [facility] Healthcare Address [address] [place] [address] Care Team Providers Care Environmental Economist Name Role Phone Micah Cao MD Primary Care Provider [phone] Micah Cao MD Unavailable [phone] Aj Black MD Unavailable Encounter Details Date Type Department Care Team (Late st Contact Info) Description 01/22/2025 Results Follow-Up [facility] Family Medicine at [address] [place] [address] Micah Cao MD [address] [place] [address] SCAN - LABS Social History Tobacco Use Types Packs/Day Years [...] on file Legal Sex Female 9:55 PM TIN FLIPPER Gender Identity Female 08/25/2022 9:37 AM TIN FLIPPER Sexual Orientation Choose not to disclose 2021 9:37 AM TIN FLIPPER documented as of this encounter Plan of Treatment Not on file documented as of this encounter Visit Diagnoses Not on filedocumented in this encounter Care Teams Environmental Economist Relationship Specialty Start Date End Date Micah Cao MD [address] [place] [address] [place] [address] PCP - General Family Medicine 05/16/22 Micah Cao MD [address] [place] [address] [place] [address] Family Medicine 05/13/22 01/22/25 Aj Black MD [address] [place] [address] [place] [address] Referring Physician Otolaryngology 01/23/25 documented as of this encounter
--- OUTSIDE RECORDS SUMMARY | 2025-01-30 11:03 | XMS_ITS ---
Author Organization [facility] Address [address] [place] [address] Care Team Providers Care Weed Control Inspector Name Role Phone Angelika Casiano Primary Care Provider [phone] Kamaljit Zimmerman [phone] REASON FOR VISIT doc hydrocodone last use 07/10/24 interested in suboxone Encounters Encounter Location Date Provider Diagnosis [facility] [place] [address] 07/12/2024 Kamaljit Zimmerman Plan Of Treatment No Information Progress Notes * Azam LOWEineDOB: [birth year] (44 yo F)Acc No.[id number]:07/12/2024 UNLOCKED PROGRESS NOTE Patient: Mckenna PRECIADO Provider: DOREEN Brower, ASSOCIATE PROFESSOR OF BIBLICAL STUDIES, DIESEL MECHANIC CONSTRUCTION-C :1980 A ge:44 Y S ex:Female Date:07/12/2024 Address:[address] [place], [place] [id number] Pcp:Angelika Casiano Subjective: * Chief Complaints: * 1 . Doc hydrocodone last use 07/10/24 interested in suboxone. * Medical History: Objective: * Vitals: Assessment: Plan: * Treatment: * * Electronic signature of Nara Zimmerman APRN, [id number] on 01/30/2025 at 11:02 AM CDT Sign off status: Pending * Provider: Daniella Zimmerman, MSN, ASSOCIATE PROFESSOR OF BIBLICAL STUDIES, DIESEL MECHANIC CONSTRUCTION-C Date: 09/11/2023 Generated for Justina beck/Wil/Delorisitting on: 0 01/30/2025 11:02 AM CDT
--- NOTE | 2025-02-13 16:08 | WPDHOLTEREM ---
Holter/Event Monitor Holter/Event Monitor Date of procedure: 01/30/25 Holter/Event Procedure: 3-7 Day Holter Monitor Indications: Palpitations Conclusion: 1. 2 days and 5 hours holter monitor on 01/30/25. 2. Underlying rhythm is sinus rhythm. HR range 53-48 bpm; average HR 87 bpm. 3. There are rare premature supraventricular complexes, rare supraventricular couplets, and rare supraventricular triplets. No supraventricular tachycardia. 4. No premature ventricular complexes. No ventricular tachycardia. 5. No significant pauses greater than 3 seconds. 6. Patient reports 5 episodes of symptoms of shortness of breath, irregular beats, fluttering which demonstrate sinus rhythm, HR range 94-108 bpm.
== END 2025-01-30 10:59 | disposition home or self-care (01) ==
LOC: ANHCARD 11:00
PROVIDERS: PCP Nurse Practitioner Family; Referring Provider Otolaryngology; Visit Provider Nurse Practitioner Family
DX: M54.2 Cervicalgia (principal); R00.2 Palpitations
CPT/HCPCS: 72040; 93242